=== PATIENT | male | born 1940 | race Caucasian/White ===

== ENCOUNTER 2016-09-22 12:46 | Emergency (ER) | payer OTHER ==
[2016-09-22 12:52] VITALS: TEMP 98.4; BMI 29.4
--- NOTE | 2016-09-22 13:36 | PDOC ---
History of Present Illness - General Chief Complaint: Penile Drainage Stated Complaint: INFECTION Time Seen by Provider: 09/22/16 13:16 History Source: Patient Exam Limitations: No Limitations - History of Present Illness Travel History: No Initial Comments: 09/22/16 14:13 76-year-old male presents to the ED for evaluation of left testicular swelling over the past 2 days worsened with ambulation and movement. Patient also states has the urge to urinate even after urinating causing some dribbling. Patient denies history of prostate disease fever, chills, abdominal pain, and has been with the same female partner for over 40 years. Patient states does not see a urologist and has Dr. Sergo Lopez as his primary care physician. Timing/Duration: reports: getting worse Quality: reports: moderate Abdominal Pain Onset Location: reports: other Pain Radiation: reports: no radiation Aggravating Factors: improves with: Movement Alleviating Factors: improves with: Rest Past History - Past Medical History Allergies/Adverse Reactions: Allergies Allergy/AdvReac Type Severity Reaction Status Date / Time No Known Allergies Allergy Verified 09/22/16 12:47 Home Medications: Ambulatory Orders Amlodipine Besylate [Norvasc -] 5 mg PO DAILY 01/10/16 Aspirin [ASA -] 81 mg PO DAILY 01/10/16 Atorvastatin Calcium 10 mg PO HS 01/10/16 Cephalexin Monohydrate [Keflex -] 500 mg PO Q6H #40 capsule 01/10/16 Clonidine HCl [Clonidine HCl ER] 0.1 mg PO DAILY 01/10/16 Furosemide [Lasix -] 20 mg PO DAILY 01/10/16 Hydrocortisone 2.5% Topical Cr [Anusol 2.5% Hc Cream -] 1 applic RC DAILY Losartan Potassium [Cozaar -] 50 mg PO DAILY 01/10/16 Metoprolol Tartrate [Lopressor -] 50 mg PO DAILY 01/10/16 Niacin [Niacin ER] 500 mg PO DAILY 01/10/16 Omeprazole [Prilosec] 20 mg PO DAILY 01/10/16 Tamsulosin HCl [Flomax] 0.4 mg PO DAILY 01/10/16 Cancer: No Cardiac Disorders: Yes (Hx of cardiac cath, 1 stent. Open heart sx.) Diabetes: Yes HTN: Yes - Surgical History Cardiac Surgery: Yes (cabg) - Psycho/Social/Smoking Cessation Hx Anxiety: No Suicidal Ideation: No Smoking History: Never smoked Have you smoked in the past 12 months: No Information on smoking cessation initiated: No Hx Alcohol Use: No Drug/Substance Use Hx: No Substance Use Type: None Patient Lives Alone: No Lives with/in: spouse/SO Review of Systems - Review of Systems Able to Perform ROS?: Yes Is the patient limited Japanese proficient: No Constitutional: No: Symptoms Reported ABD/GI: No: Symptoms Reported : Yes: Testicular Swelling, Testicular Pain, Other (dribbling urine) Musculoskeletal: No: Symptoms Reported Integumentary: No: Symptoms Reported Neurological: No: Symptoms reported Endocrine: No: Symptoms Reported *Physical Exam - Vital Signs Last Vital Signs Temp Pulse Resp BP Pulse Ox 98.4 F 84 18 143/79 100 09/22/16 12:49 09/22/16 12:49 09/22/16 12:49 09/22/16 12:49 09/22/16 12:49 - Physical Exam General Appearance: Yes: Nourished, Appropriately Dressed. No: Apparent Distress Gastrointestinal/Abdominal: positive: Normal Bowel Sounds, Soft. negative: Tenderness Male Genitalia: positive: normal genitalia (uncircumcised, ), testicular tenderness (with edema to the left testicle. Tenderness to left epididymis). negative: discharge Musculoskeletal: negative: CVA Tenderness Extremity: positive: Normal Capillary Refill. negative: Pedal Edema Integumentary: positive: Normal Color, Warm, Moist Neurologic: positive: Motor Strength 5/5 (ambulatory) Medical Decision Making - Medical Decision Making 09/22/16 14:24 Patient with testicular edema and tenderness with urinary frequency for the past 2 days. Patient on exam had noted edema to the left testicle patient ordered for urinalysis urine culture and ultrasound.. 09/22/16 15:15 Laboratory Tests 09/22/16 13:36 Urine Glucose (UA) 3+ H Urine Blood 1+ H Ur Leukocyte Esterase 2+ H Urine WBC 112 urine cx sent Previous urine culture positive for Escherichia coli in 2016 which was sensitive to Levaquin. Patient ordered for 1 dose here while awaiting ultrasound 09/22/16 17:19 Ultrasound shows no evidence of testicular torsion. There is a left epididymal orchitis and a small to moderate left hydrocele. Patient will be given Levaquin and discharged to follow-up with urologist. 09/22/16 17:23 *DC/Admit/Observation/Transfer Diagnosis at time of Disposition: Epididymo-orchitis, Urinary tract infection - Discharge Dispostion Disposition: HOME Condition at time of disposition: Good - Referrals Referrals: Garett Awad MD [Staff Physician] - - Patient Instructions Printed Discharge Instructions: DI for Urinary Tract Infection (UTI), Epididymitis Additional Instructions: Please take antibiotics as prescribed for the next 10 days starting tomorrow since your given your first dose here in the ER. Please also elevate your scrotum when laying down and follow up with referred urologist.
[2016-09-22 14:28] LABS: URINE APPEARANCE SLCLOUDY; URINE BILIRUBIN NEGATIVE (NEGATIVE); URINE COLOR LTYELLOW; URINE GLUCOSE (UA) 3+ (NEGATIVE); URINE KETONE NEGATIVE (NEGATIVE); URINE NITRITE NEGATIVE (NEGATIVE); URINE PROTEIN NEGATIVE (NEGATIVE); URINE UROBILINOGEN NEGATIVE E.U./dl (0.2-1.0)
[2016-09-22 14:45] LABS: URINE BLOOD 1+ (NEGATIVE); URINE LEUK ESTERASE 2+ (NEGATIVE)
[2016-09-22 14:59] LABS: URINE MUCUS RARE; URINE WBC 112 /hpf (3-5)
[2016-09-22 15:10] LABS: URINE RBC 1 /hpf (0-3)
[2016-09-22] MEDS ORDERED: LEVOFLOXACIN 500 MG TABLET (FP) PO ONE (15:48)
[2016-09-22] MEDS ORDERED: LEVOFLOXACIN 500 MG TABLET (FP) ONE (16:46)
[2016-09-22 17:42] VITALS: BP 140/80; PULSE 80
== END 2016-09-22 17:43 | disposition home or self-care (01) ==
LOC: JER 12:46
DX: N45.3 Epididymo-orchitis (principal); N39.0 Urinary tract infection, site not specified; I25.10 Atherosclerotic heart disease of native coronary artery without angina pectoris; I10 Essential (primary) hypertension; Z95.1 Presence of aortocoronary bypass graft; Z95.5 Presence of coronary angioplasty implant and graft; E78.00 Pure hypercholesterolemia, unspecified; E11.9 Type 2 diabetes mellitus without complications
CPT/HCPCS: 76870-TC; 81003; 81015; 87086; 87186; 99282-25

== ENCOUNTER 2019-07-06 14:35 | Emergency (ER) | payer OTHER ==
[2019-07-06] MEDS ORDERED: KETOROLAC TROMETHAMINE 30 MG/1 ML VIAL IM ONE (14:44)
--- NOTE | 2019-07-06 14:44 | PDOC ---
Rapid Medical Evaluation Time Seen by Provider: 07/06/19 14:39 Medical Evaluation: Allergies Allergy/AdvReac Type Severity Reaction Status Date / Time No Known Allergies Allergy Verified 09/22/16 12:47 07/06/19 14:39 CC: lower back pain radiating down BLE PE: No focal findings Orders: Toradol Patient will proceed to ED for continued evaluation. Discharge Disposition - Diagnosis Lower back pain - Referrals - Patient Instructions - Post Discharge Activity
[2019-07-06 14:59] VITALS: BP 145/88; PULSE 90; TEMP 97.6; BMI 37.1
[2019-07-06] MEDS ORDERED: KETOROLAC TROMETHAMINE 30 MG/1 ML VIAL ONE (15:06)
[2019-07-06] MEDS ORDERED: ACETAMINOPHEN 325 MG TABLET (FP) PO ONE (15:17)
--- NOTE | 2019-07-06 15:17 | PDOC ---
History of Present Illness - General Chief Complaint: Back Pain Stated Complaint: BACK PAIN Time Seen by Provider: 07/06/19 14:39 History Source: Patient - History of Present Illness Initial Comments: 07/06/19 16:05 Chief complaint: Lower back pain. Patient is a 79-year-old male with a history of CAD, diabetes other comorbidities who states that he started having lower back pain this past Wednesday. He saw his doctor on Wednesday and had blood work done. Patient denies pain right now except when he gets up to stand. He has a little bit of pain down the right leg, no paresthesias, no incontinence. Patient states he has been urinating normally. His doctor did tell him that his kidney function was somewhat elevated because of the diabetes but there was no further treatment indicated. No fever, chest pain, shortness of breath. GENERAL/CONSTITUTIONAL: No fever, weakness. dizziness HEAD, EYES, EARS, NOSE AND THROAT: No change in vision. No ear pain or discharge. No sore throat. CARDIOVASCULAR: No chest pain RESPIRATORY: No shortness of breath or cough GASTROINTESTINAL: No pain, nausea, vomiting, diarrhea or constipation GENITOURINARY: No dysuria MUSCULOSKELETAL: +back pain SKIN: No rash NEUROLOGIC: No headache, vertigo, loss of consciousness, or loss of sensation. GENERAL: The patient is awake, alert, and fully oriented, in no acute distress. HEAD: Normal with no signs of trauma. EYES: Pupils equal, round and reactive to light, sclera anicteric, conjunctiva clear. ENT: pharynx: no erythema, no exudate, uvula midline NECK: supple CHEST: clear, nontender, rr ABD: soft, nontender BACK: no tenderness or signs of injury, no CVAT EXTREMITIES: Normal range of motion, no edema. No calf tenderness, swelling or redness. Neurovascular intact NEUROLOGICAL: Normal speech, normal gait. Cranial nerves II through XII grossly intact, no gross focal abnormalities SKIN: Warm, Dry Past History - Past Medical History Allergies/Adverse Reactions: Allergies Allergy/AdvReac Type Severity Reaction Status Date / Time No Known Allergies Allergy Verified 07/06/19 14:55 Home Medications: Ambulatory Orders Amlodipine Besylate [Norvasc -] 5 mg PO DAILY 01/10/16 Aspirin [ASA -] 81 mg PO DAILY 01/10/16 Atorvastatin Calcium 10 mg PO HS 01/10/16 Cephalexin Monohydrate [Keflex -] 500 mg PO Q6H #40 capsule 01/10/16 Clonidine HCl [Clonidine HCl ER] 0.1 mg PO DAILY 01/10/16 Furosemide [Lasix -] 20 mg PO DAILY 01/10/16 Hydrocortisone 2.5% Topical Cr [Anusol 2.5% Hc Cream -] 1 applic RC DAILY Losartan Potassium [Cozaar -] 50 mg PO DAILY 01/10/16 Metoprolol Tartrate [Lopressor -] 50 mg PO DAILY 01/10/16 Niacin [Niacin ER] 500 mg PO DAILY 01/10/16 Omeprazole [Prilosec] 20 mg PO DAILY 01/10/16 Tamsulosin HCl [Flomax] 0.4 mg PO DAILY 01/10/16 Levofloxacin [Levaquin] 500 mg PO DAILY #9 tablet 09/22/16 Cancer: No Cardiac Disorders: Yes (Hx of cardiac cath, 1 stent. Open heart sx.) Diabetes: Yes HTN: Yes - Surgical History Cardiac Surgery: Yes (cabg) - Psycho Social/Smoking Cessation Hx Smoking History: Never smoked Have you smoked in the past 12 months: No Hx Alcohol Use: No Drug/Substance Use Hx: No Substance Use Type: None *Physical Exam - Vital Signs Last Vital Signs Temp Pulse Resp BP Pulse Ox 97.6 F 90 18 145/88 98 07/06/19 14:56 07/06/19 14:56 07/06/19 14:56 07/06/19 14:56 07/06/19 14:56 ED Treatment Course - ADDITIONAL ORDERS Additional order review: Laboratory Results 07/06/19 15:11 POC Glucometer 226 07/06/19 15:11 POC Glucometer 226 - Medications Given in the ED: ED Medications Discontinued Medications Generic Name Dose Route Start Last Admin Trade Name Freq PRN Reason Stop Dose Admin Ketorolac Tromethamine 30 mg 07/06/19 14:44 07/06/19 15:05 Toradol Injection - IM 07/06/19 14:45 30 mg ONCE ONE Administration Medical Decision Making - Medical Decision Making 07/06/19 16:10 79-year-old male with multiple medical problems who came in with very positional lower back pain, asymptomatic except when he moves. No chest pain, shortness of breath, no swelling redness or concerning clinical findings to the legs. No tenderness or CVAT to the back. No abdominal pain. Patient will get x-ray and Tylenol, no NSAIDs will be given due to history of diabetes and questionable abnormal kidney function as per patient and son. He last saw his doctor last Wednesday. X-ray is negative, read by radiologist. Patient will be sent to follow-up with his doctor tomorrow for further evaluation. Discussed issues, findings, results, applicable medications and treatments and follow-up. All these were understood and all questions were answered Discharge - Discharge Information Problems reviewed: Yes Clinical Impression/Diagnosis: Lower back pain Qualifiers: Chronicity: acute Back pain laterality: right Sciatica presence: with sciatica Sciatica laterality: sciatica of right side Qualified Code(s): M54.41 - Lumbago with sciatica, right side Condition: Stable Disposition: HOME - Admission No - Follow up/Referral Referrals: Sergo Lopez [Primary Care Provider] - - Patient Discharge Instructions Patient Printed Discharge Instructions: DI for Low Back Pain Additional Instructions: No heavy lifting or bending Apply ice to the area 20 minutes every 2 hours for the next 2 days Continue taking Tylenol 650 mg every 4-6 hours for pain. Return to the nearest ER if numbness, weakness, severe pain, problems with urinating or having bowel movements. Follow-up with your doctor tomorrow. It is important for you to see him since he knows all your medical problems and will further guide your treatment plan and any necessary referrals No levantar objetos pesados ??ni agacharse Aplique hielo en el albino 20 minutos cada 2 horas myrtle los prximos 2 beaulieu. Contine tomando Tylenol 650 mg cada 4-6 horas para el dolor. Regrese a la steven de emergencias ms cercana si tiene entumecimiento, debilidad , dolor intenso, problemas para orinar o defecar. Annelise un seguimiento con jernigan mdico maana. Es importante que lo lupe, ya que l conoce todos eamon problemas mdicos y le guiar an ms jernigan plan de tratamiento y las derivaciones necesarias. Print Language: INDONESIAN - Post Discharge Activity
[2019-07-06] MEDS ORDERED: ACETAMINOPHEN 325 MG TABLET (FP) ONE (15:21)
== END 2019-07-06 16:22 | disposition home or self-care (01) ==
LOC: JERFT 14:35
PROC: 3E0233Z Introduction of Anti-inflammatory into Muscle, Percutaneous Approach (ICD-10-PCS; principal; 2019-07-06)
DX: M54.41 Lumbago with sciatica, right side (principal); I25.10 Atherosclerotic heart disease of native coronary artery without angina pectoris; I10 Essential (primary) hypertension; Z95.1 Presence of aortocoronary bypass graft; Z95.5 Presence of coronary angioplasty implant and graft; E11.9 Type 2 diabetes mellitus without complications
CPT/HCPCS: 72100-TC-FY; 82962; 96372; 99284-25

== ENCOUNTER 2019-07-09 03:23 | Inpatient (IN) | payer OTHER ==
--- NOTE | 2019-07-09 04:05 | PDOC ---
History of Present Illness - General Stated Complaint: AMS Time Seen by Provider: 07/09/19 03:48 - History of Present Illness Initial Comments: 07/09/19 03:59 The patient is a 79 year old male with a PMHx of IDDM, HLD here today after being found wandering in his neighborhood this morning in his [facility]. Daughters and grandaughter at bedside assist in history. Report that patient flew here from the [place] because he had been behaving erratically for the past 2-3 months (pulling knives and threatening his , wandering the streets naked) and his family wished for him to be evaluated in the [place]. Patient was in his usual state of health this summer, living independently in an [place] He went to the [facility] in January and was fine until the last few months. Daughters report that they are unable to care for patient @ home as he requires 24 hour monitoring. Past History - Past Medical History Allergies/Adverse Reactions: Allergies Allergy/AdvReac Type Severity Reaction Status Date / Time No Known Allergies Allergy Verified 07/09/19 04:06 Home Medications: Ambulatory Orders Unobtainable 07/09/19 Cancer: No Cardiac Disorders: Yes (Hx of cardiac cath, 1 stent. Open heart sx.) Diabetes: Yes HTN: Yes - Surgical History Cardiac Surgery: Yes (cabg) - Psycho Social/Smoking Cessation Hx Smoking History: Never smoked Have you smoked in the past 12 months: No Hx Alcohol Use: No Drug/Substance Use Hx: No Substance Use Type: None Review of Systems - Review of Systems Able to Perform ROS?: No (AMS) *Physical Exam - Physical Exam General Appearance: Yes: Nourished, Appropriately Dressed HEENT: positive: Normal Voice, Hearing Grossly Normal Neck: positive: Normal Thyroid, Supple Respiratory/Chest: positive: Lungs Clear, Normal Breath Sounds Cardiovascular: positive: Regular Rate, S1, S2 Gastrointestinal/Abdominal: positive: Normal Bowel Sounds, Soft Extremity: positive: Normal Capillary Refill, Normal Inspection Integumentary: positive: Normal Color, Dry, Warm Neurologic: positive: Alert, Responsive, Confused, Disoriented. negative: Fully Oriented, Facial Droop, Numbness, Depressed Affect ED Treatment Course - LABORATORY CBC & Chemistry Diagram: 07/09/19 04:27 07/09/19 04:27 - ADDITIONAL ORDERS Additional order review: Laboratory Results 07/09/19 03:28 POC Glucometer 183 07/09/19 03:28 POC Glucometer 183 Medical Decision Making - Medical Decision Making 07/09/19 04:03 79 y/o male with 2-3 month h/o AMS. At presentation patient alert and oriented to self. Identifies he is in a hospital but states he is in the [place]. Mildly tachycardic (HR 104) and hypertensive (171/98) @ presentation Will evaluate for organic (thyroid dysfunction, electrolyte derangement, dementia including Alzheimer's and Lewy Body, more likely the latter given acute onset) and non-organic (toxic ingestion, polypharmacy) as well as Head CT to evaluate for AMS 2/2 to CVA. Reassess. 07/09/19 05:37 Elevated Troponin - EKG with Q waves in inferior leads Cr elevated @ 1.8 (1.4 in 2016) Case d/w Dr. Weber will admit intpatient telemetry. Clinical Impression: GODWIN, ? NSTEMI, AMS - most likely organic Discharge - Discharge Information Problems reviewed: Yes Clinical Impression/Diagnosis: Altered mental status Condition: Fair - Admission Yes - Follow up/Referral Referrals: Sergo Lopez [Primary Care Provider] - - Patient Discharge Instructions - Post Discharge Activity
[2019-07-09 04:07] VITALS: BMI 33.9
[2019-07-09] MEDS ORDERED: SODIUM CHLORIDE 1,000 ML IV SCH (04:15)
[2019-07-09 04:46] LABS: BASO % 1.3 % (0-2.0); EOS % 4.1 % (0-4.5); HEMATOCRIT 44.6 % (35.4-49); HEMOGLOBIN 15.1 GM/dL (11.7-16.9); LYMPH % 21.5 % (8-40); MCHC 33.8 g/dl (32.0-35.9); MEAN CELL VOLUME 88.9 fl (80-96); MONO % 5.6 % (3.8-10.2); NEUT % 67.5 % (42.8-82.8); PLATELET COUNT 217 K/MM3 (134-434); RBC 5.02 M/mm3 (4.00-5.60); RDW 13.6 % (11.9-15.9); WHITE BLOOD COUNT 6.1 K/mm3 (4.0-10.0)
[2019-07-09 05:13] LABS: ALBUMIN 3.6 g/dl (3.4-5.0); BILIRUBIN,TOTAL 0.4 mg/dL (0.2-1); BLOOD UREA NITROGEN 24.1 mg/dL (7-18); CALCIUM 9.2 mg/dL (8.5-10.1); CREATININE 1.8 mg/dL (0.55-1.3); POTASSIUM 4.2 mmol/L (3.5-5.1); TOT PROT 7.4 g/dl (6.4-8.2)
[2019-07-09 05:30] LABS: INR 1.11 (0.83-1.09); PROTHROMBIN TIME (PATIENT) 13.1 SEC (9.7-13.0)
[2019-07-09 05:33] LABS: ACTIVATED PTT 32.8 SECONDS (25.2-36.5)
[2019-07-09 05:38] LABS: URINE APPEARANCE CLEAR; URINE BILIRUBIN NEGATIVE (NEGATIVE); URINE COLOR YELLOW; URINE GLUCOSE (UA) TRACE (NEGATIVE); URINE KETONE NEGATIVE (NEGATIVE); URINE LEUK ESTERASE NEGATIVE (NEGATIVE); URINE NITRITE NEGATIVE (NEGATIVE); URINE PROTEIN TRACE (NEGATIVE); URINE UROBILINOGEN 0.2 mg/dL (0.2-1.0)
[2019-07-09 05:57] LABS: COCAINE, UR NEGATIVE ng/ml (CUTOFF=300); METHADONE, UR NEGATIVE ng/ml (CUTOFF=300); OPIATES, URI NEGATIVE ng/ml (CUTOFF=300); PHENCYCLIDINE,URINE NEGATIVE ng/ml (CUTOFF=25); URINE AMPHETAMINES NEGATIVE ng/ml (CUTOFF=500); URINE BARBITURATES NEGATIVE ng/ml (CUTOFF=200); URINE BENZODIAZEPINES NEGATIVE ng/ml (CUTOFF=200)
[2019-07-09] MEDS ORDERED: amLODIPine BESYLATE 5 MG TABLET (FP) PO ONE (06:09)
[2019-07-09] MEDS ORDERED: amLODIPine BESYLATE 5 MG TABLET (FP) ONE (06:17)
[2019-07-09] MEDS ORDERED: HEPARIN NA (PORCINE) 5,000 UNITS/ML 1ML VIAL ONE ×3 (06:17→21:08)
[2019-07-09] MEDS ORDERED: LOSARTAN POTASSIUM 50 MG TABLET (FP) PO ONE (06:20)
[2019-07-09] MEDS: HEPARIN NA (PORCINE) 5,000 UNITS/ML 1ML VIAL SQ SCH ×3 (06:22→21:27)
--- NOTE | 2019-07-09 06:22 | HP ---
CHIEF COMPLAINT: ams PCP: HISTORY OF PRESENT ILLNESS: Pt is a79 y/o M with PMH IDDM, HLD, HTN, cath s/p stent who presented to the ED brought by family after being found wandering around his neighborhood in his [facility]. Reportedly, pt has been behaving erratically for the last 2-3 months, so his family flew him [place] the [place] to be evaluated. Prior to this, his behavior was normal. On my interview, pt is able to orient with some difficulty to place. He does not know the year reliably. He has no complaints and is not able to clearly express why he is in the hospital. ER course was notable for: (1) (2) (3) Recent Travel: PAST MEDICAL HISTORY: IDDM, HLD, HTN, cath s/p sten PAST SURGICAL HISTORY: Social History: Smoking: Alcohol: Drugs: Allergies No Known Allergies Allergy (Verified 07/09/19 04:06) HOME MEDICATIONS: Home Medications Medication Instructions Recorded Unobtainable 07/09/19 REVIEW OF SYSTEMS CONSTITUTIONAL: Absent: fever, chills, diaphoresis, generalized weakness, malaise, loss of appetite, weight change HEENT: Absent: rhinorrhea, nasal congestion, throat pain, throat swelling, difficulty swallowing, mouth swelling, ear pain, eye pain, visual changes CARDIOVASCULAR: Absent: chest pain, syncope, palpitations, irregular heart rate, lightheadedness , peripheral edema RESPIRATORY: Absent: cough, shortness of breath, dyspnea with exertion, orthopnea, wheezing, stridor, hemoptysis GASTROINTESTINAL: Absent: abdominal pain, abdominal distension, nausea, vomiting, diarrhea, constipation, melena, hematochezia GENITOURINARY: Absent: dysuria, frequency, urgency, hesitancy, hematuria, flank pain, genital pain MUSCULOSKELETAL: Absent: myalgia, arthralgia, joint swelling, back pain, neck pain SKIN: Absent: rash, itching, pallor HEMATOLOGIC/IMMUNOLOGIC: Absent: easy bleeding, easy bruising, lymphadenopathy, frequent infections ENDOCRINE: Absent: unexplained weight gain, unexplained weight loss, heat intolerance, cold intolerance NEUROLOGIC: Absent: headache, focal weakness or paresthesias, dizziness, unsteady gait, seizure, mental status changes, bladder or bowel incontinence PSYCHIATRIC: Absent: anxiety, depression, suicidal or homicidal ideation, hallucinations. PHYSICAL EXAMINATION Vital Signs - 24 hr 07/09/19 07/09/19 04:06 05:48 Temperature 97.9 F Pulse Rate 104 H Pulse Rate [ 90 Apical] Respiratory 18 20 Rate Blood Pressure 171/98 H Blood Pressure 140/86 [Right Arm] O2 Sat by Pulse 96 94 L Oximetry (%) Gen: NAD, Awake, alert HEENT: NCAT, EOMI Neck: supple, no jvd Cardio: rrr, normal s1s2, systolic murmur Pulm: cta b/l Abd: soft, nontender, nondistended Ext: no edema Laboratory Results - last 24 hr 07/09/19 07/09/19 07/09/19 03:28 04:27 04:27 WBC RBC Hgb Hct MCV MCH MCHC RDW Plt Count MPV Absolute Neuts (auto) Neutrophils % Lymphocytes % Monocytes % Eosinophils % Basophils % Nucleated RBC % PT with INR 13.10 H INR 1.11 H PTT (Actin FS) 32.8 Sodium Potassium Chloride Carbon Dioxide Anion Gap BUN Creatinine Est GFR (CKD-EPI)AfAm Est GFR (CKD-EPI)NonAf POC Glucometer 183 Random Glucose Calcium Total Bilirubin AST ALT Alkaline Phosphatase Ammonia Creatine Kinase Troponin I Total Protein Albumin Urine Color Urine Appearance Urine pH Ur Specific [place] Urine Protein Urine Glucose (UA) Urine Ketones Urine Blood Urine Nitrite Urine Bilirubin Urine Urobilinogen Ur Leukocyte Esterase Salicylates < 1.7 L Opiates Screen Methadone Screen Acetaminophen Barbiturate Screen Phencyclidine Screen Ur Amphetamines Screen MDMA (Ecstasy) Screen Benzodiazepines Screen Cocaine Screen U Marijuana (THC) Screen 07/09/19 07/09/19 07/09/19 04:27 04:27 04:27 WBC 6.1 RBC 5.02 Hgb 15.1 Hct 44.6 MCV 88.9 MCH 30.0 D MCHC 33.8 RDW 13.6 Plt Count 217 D MPV 8.0 D Absolute Neuts (auto) 4.1 Neutrophils % 67.5 D Lymphocytes % 21.5 D Monocytes % 5.6 D Eosinophils % 4.1 D Basophils % 1.3 Nucleated RBC % 0 PT with INR INR PTT (Actin FS) Sodium 138 Potassium 4.2 Chloride 106 Carbon Dioxide 27 Anion Gap 5 L BUN 24.1 H Creatinine 1.8 H Est GFR (CKD-EPI)AfAm 40.87 Est GFR (CKD-EPI)NonAf 35.26 POC Glucometer Random Glucose 160 H Calcium 9.2 Total Bilirubin 0.4 AST 19 ALT 29 Alkaline Phosphatase 99 Ammonia Creatine Kinase 98 Troponin I 0.26 H Total Protein 7.4 Albumin 3.6 Urine Color Urine Appearance Urine pH Ur Specific [place] Urine Protein Urine Glucose (UA) Urine Ketones Urine Blood Urine Nitrite Urine Bilirubin Urine Urobilinogen Ur Leukocyte Esterase Salicylates Opiates Screen Methadone Screen Acetaminophen Barbiturate Screen Phencyclidine Screen Ur Amphetamines Screen MDMA (Ecstasy) Screen Benzodiazepines Screen Cocaine Screen U Marijuana (THC) Screen 07/09/19 07/09/19 07/09/19 04:27 04:27 05:20 WBC RBC Hgb Hct MCV MCH MCHC RDW Plt Count MPV Absolute Neuts (auto) Neutrophils % Lymphocytes % Monocytes % Eosinophils % Basophils % Nucleated RBC % PT with INR INR PTT (Actin FS) Sodium Potassium Chloride Carbon Dioxide Anion Gap BUN Creatinine Est GFR (CKD-EPI)AfAm Est GFR (CKD-EPI)NonAf POC Glucometer Random Glucose Calcium Total Bilirubin AST ALT Alkaline Phosphatase Ammonia 27.10 Creatine Kinase Troponin I Total Protein Albumin Urine Color Urine Appearance Urine pH Ur Specific [place] Urine Protein Urine Glucose (UA) Urine Ketones Urine Blood Urine Nitrite Urine Bilirubin Urine Urobilinogen Ur Leukocyte Esterase Salicylates Opiates Screen Negative Methadone Screen Negative Acetaminophen <2.0 Barbiturate Screen Negative Phencyclidine Screen Negative Ur Amphetamines Screen Negative MDMA (Ecstasy) Screen Negative Benzodiazepines Screen Negative Cocaine Screen Negative U Marijuana (THC) Screen Negative 07/09/19 05:20 WBC RBC Hgb Hct MCV MCH MCHC RDW Plt Count MPV Absolute Neuts (auto) Neutrophils % Lymphocytes % Monocytes % Eosinophils % Basophils % Nucleated RBC % PT with INR INR PTT (Actin FS) Sodium Potassium Chloride Carbon Dioxide Anion Gap BUN Creatinine Est GFR (CKD-EPI)AfAm Est GFR (CKD-EPI)NonAf POC Glucometer Random Glucose Calcium Total Bilirubin AST ALT Alkaline Phosphatase Ammonia Creatine Kinase Troponin I Total Protein Albumin Urine Color Yellow Urine Appearance Clear Urine pH 6.0 Ur Specific [place] 1.017 Urine Protein Trace Urine Glucose (UA) Trace Urine Ketones Negative Urine Blood Negative Urine Nitrite Negative Urine Bilirubin Negative Urine Urobilinogen 0.2 Ur Leukocyte Esterase Negative Salicylates Opiates Screen Methadone Screen Acetaminophen Barbiturate Screen Phencyclidine Screen Ur Amphetamines Screen MDMA (Ecstasy) Screen Benzodiazepines Screen Cocaine Screen U Marijuana (THC) Screen ASSESSMENT/PLAN: Pt is a79 y/o M with PMH IDDM, HLD, HTN, cath s/p stent who presented to the ED brought by family after being found wandering around his neighborhood in his [facility]. He is being admitted for AMS, GODWIN, & elevated troponin. 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 - New Patient This patient is new to me today: Yes Date on this admission: 07/09/19 - Critical Care Critical Care patient: No ATTENDING PHYSICIAN STATEMENT I saw and evaluated the patient. I reviewed the resident's note and discussed the case with the resident. I agree with the resident's findings and plan as documented. SUBJECTIVE: OBJECTIVE: ASSESSMENT AND PLAN:
--- NOTE | 2019-07-09 06:33 | PDOC ---
Attending Attestation - Resident Resident Name: MalenaKelly - ED Attending Attestation I have performed the following: I have examined & evaluated the patient, The case was reviewed & discussed with the resident, I agree w/resident's findings & plan - HPI HPI: 07/09/19 06:33 he patient is a 79 year old male with a PMHx of IDDM, HLD here today after being found wandering in his neighborhood this morning in his [facility]. Daughters and grandaughter at bedside assist in history. Report that patient flew here from the [place] because he had been behaving erratically for the past 2-3 months - Physicial Exam PE: 07/09/19 06:33 Agree with resident exam - Medical Decision Making 07/09/19 06:35 Patient Name: RUBEN WOODRUFF THIS IS A PRELIMINARY REPORT FROM [facility] DATE OF SERVICE: 2019-07-09 04:49:22 IMAGES: [id number] EXAM: CT BRAIN WITHOUT INTRAVENOUS CONTRAST. HISTORY: AMS COMPARISON: None. FINDINGS: 1. There is mild to moderate periventricular white matter small vessel ischemic disease, presumed chronic. 2. Otherwise, there is no intracranial bleed, extra-axial fluid collection, mass effect, midline shift, hydrocephalus, acute territorial infarct or depressed skull fracture evident. 3.. Partial opacification of the ethmoid sinus. 07/09/19 20:11 Elevated Troponin - EKG with Q waves in inferior leads Cr elevated @ 1.8 (1.4 in 2016) Case d/w Dr. Weber will admit intpatient telemetry.
[2019-07-09] MEDS ORDERED: LOSARTAN POTASSIUM 50 MG TABLET (FP) ONE (06:38)
--- NOTE | 2019-07-09 06:40 | PN ---
Teaching Attending Note Name of Resident: Dami Weber ATTENDING PHYSICIAN STATEMENT I saw and evaluated the patient. I reviewed the resident's note and discussed the case with the resident. I agree with the resident's findings and plan as documented. SUBJECTIVE: History was obtained from EMR as patient is a very poor historian. 79-year-old male with a history of insulin-dependent diabetes, hypertension, dyslipidemia, CAD status post stent brought by his family to the emergency department after he was wandering around the neighborhood in his [facility]. He was behaving erratically for the last 3 months. Patient reports that he is from [facility] [place]. He is oriented to person, place but not to time. Patient does not know why he is in the hospital. OBJECTIVE: Last Vital Signs Temp Pulse Resp BP Pulse Ox 97.9 F 90 20 140/86 94 L 07/09/19 04:06 07/09/19 05:48 07/09/19 05:48 07/09/19 05:48 07/09/19 05:48 On physical exam patient is an elderly male in no apparent distress. Head is atraumatic, sclera nonicteric. Moist oral mucosa. Neck is supple, no JVD appreciated. Heart sounds are normal S1, S2 with no murmurs appreciated. Lungs are clear to auscultation bilaterally. Abdomen is soft, nontender. Lower extremities with no pedal edema. Abnormal Lab Results 07/09/19 07/09/19 07/09/19 04:27 04:27 04:27 PT with INR 13.10 H INR 1.11 H Anion Gap BUN Creatinine Random Glucose Troponin I 0.26 H Salicylates < 1.7 L 07/09/19 04:27 PT with INR INR Anion Gap 5 L BUN 24.1 H Creatinine 1.8 H Random Glucose 160 H Troponin I Salicylates Imaging studies reviewed ASSESSMENT AND PLAN: Altered mental statusunknown baseline GODWIN versus CKD Elevated troponin with absence of chest pain or shortness of breath unlikely ACS. 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
[2019-07-09] MEDS: SODIUM CHLORIDE 1,000 ML IV SCH (06:57)
[2019-07-09 07:08] LABS: ARTERIAL BLD GAS O2 SATURATION 90.6 % (95-98); ARTERIAL BLOOD GAS BASE EXCESS 1.8 meq/l (-2-2); ARTERIAL BLOOD GAS PCO2 39.9 mmHg (35-45); ARTERIAL BLOOD GAS PO2 59.9 mmHg (80-100); ARTERIAL BLOOD GAS pH 7.43 (7.35-7.45); CARBOXYHEMOGLOBIN 1.1 % (0-2)
[2019-07-09] MEDS: INSULIN SLIDING SCALE (NOVOLOG) 1 VIAL SQ SCH ×4 (08:34→21:27)
[2019-07-09] MEDS ORDERED: LOSARTAN POTASSIUM 50 MG TABLET (FP) PO SCH (10:00)
--- NOTE | 2019-07-09 11:26 | CON.CARD ---
Consult Consult Specialty:: Cardiology - History of Present Illness History of Present Illness: 79 M with DM and previous cabg was found wandering in the street and brought to ER. He is confused and had incidental troponin elevation. Cr 1.8 CXR is clear Stress 2016 showed EF 26% with partially reversible posterior defect. He is comfortable. - History Source History Provided By: Medical Record - Alcohol/Substance Use Hx Alcohol Use: No - Smoking History Smoking history: Never smoked Have you smoked in the past 12 months: No Home Medications - Allergies Allergies/Adverse Reactions: Allergies Allergy/AdvReac Type Severity Reaction Status Date / Time No Known Allergies Allergy Verified 07/09/19 04:06 - Home Medications Home Medications: Ambulatory Orders Unobtainable 07/09/19 Review of Systems Unable to obtain ROS, reason: delerium Vital Signs: Vital Signs Temperature 97.9 F 07/09/19 10:50 Pulse Rate 91 H 07/09/19 10:50 Respiratory Rate 18 07/09/19 10:50 Blood Pressure 120/82 07/09/19 10:50 O2 Sat by Pulse Oximetry (%) 92 L 07/09/19 10:50 Constitutional: Yes: Well Nourished, No Distress Eyes: Yes: WNL, Conjunctiva Clear HENT: Yes: Atraumatic, Normocephalic Neck: Yes: Supple, Trachea Midline Respiratory: Yes: Regular, CTA Bilaterally Gastrointestinal: Yes: Normal Bowel Sounds, Soft Cardiovascular: Yes: Regular Rate and Rhythm JVD: No Carotid Bruit: No PMI: Non-Displaced Heart Sounds: Yes: S1, S2 Murmur: No: Systolic Murmur, Diastolic Murmur Edema: No - Other Data Labs, Other Data: CBC, BMP 07/09/19 04:27 07/09/19 04:27 INR, PTT INR 1.11 (0.83-1.09) H 07/09/19 04:27 Troponin, BNP 07/09/19 07/09/19 04:27 10:00 Troponin I 0.26 H 0.25 H Troponin, BNP 07/09/19 07/09/19 04:27 10:00 Troponin I 0.26 H 0.25 H NSR old IWMI Problem List - Problems (1) CAD (coronary artery disease) Code(s): I25.10 - ATHSCL HEART DISEASE OF [place] CORONARY ARTERY W/O ANG PCTRS Assessment/Plan 79 M with CAD post CABG, ischemic cardiomyopathy Stress 2016 showed EF 26%. Admitted [facility]. No chest pain or heart failure symptoms. ECG without ischemic findings. Mildly positive TP in this setting is difficult to interpret but medical therapy for CAD is needed. * Echo * ASA * Statin * beta victorino
--- NOTE | 2019-07-09 13:25 | PN ---
Progress Note, Physician Chief Complaint: AMS GODWIN on CKD History of Present Illness: PRevious notes and events reviewed awake and alert NAD denies chest pain or SOB noted with elevated troponin - Current Medication List Current Medications: Active Medications Heparin Sodium (Porcine) (Heparin -) 5,000 unit SQ TID [facility] Last Admin: 07/09/19 06:22 Dose: 5,000 unit Sodium Chloride (Normal Saline -) 1,000 mls @ 75 mls/hr IV ASDIR [facility] Last Admin: 07/09/19 06:57 Dose: 75 mls/hr Insulin Aspart (Novolog Vial Sliding Scale -) 1 vial SQ ACHS [facility]; Protocol Last Admin: 07/09/19 12:48 Dose: Not Given Losartan Potassium (Cozaar -) 50 mg PO DAILY [facility] - Objective Vital Signs: Vital Signs Temperature 97.9 F 07/09/19 10:50 Pulse Rate 91 H 07/09/19 10:50 Respiratory Rate 18 07/09/19 10:50 Blood Pressure 120/82 07/09/19 10:50 O2 Sat by Pulse Oximetry (%) 92 L 07/09/19 10:50 Constitutional: Yes: No Distress, Calm Eyes: Yes: Conjunctiva Clear HENT: Yes: Atraumatic Cardiovascular: Yes: Regular Rate and Rhythm Respiratory: Yes: Regular, CTA Bilaterally Gastrointestinal: Yes: Normal Bowel Sounds, Soft Musculoskeletal: Yes: WNL Extremities: Yes: WNL Edema: No Neurological: Yes: Alert Psychiatric: Yes: Alert Labs: CBC, BMP 07/09/19 04:27 07/09/19 04:27 INR, PTT INR 1.11 (0.83-1.09) H 07/09/19 04:27 Problem List - Problems (1) Altered mental status Assessment/Plan: Neurology and Cardiology consult Head CT scan shows mild to moderate volume loss and and moderate to marked periventricular chronic microvascular ischemic disease changes, no CT evidence of acute intracranial pathology, mild ehtmoid chronic sinusitis neuro check tele monitoring Code(s): R41.82 - ALTERED MENTAL STATUS, UNSPECIFIED (2) Diabetes Assessment/Plan: B[facility] ISS HgA1c Code(s): E11.9 - TYPE 2 DIABETES MELLITUS WITHOUT COMPLICATIONS Qualifiers: Diabetes mellitus type: type 2 Diabetes mellitus complication status: with hyperglycemia Qualified Code(s): E11.65 - Type 2 diabetes mellitus with hyperglycemia (3) HTN (hypertension) Assessment/Plan: Losartan low Na diet Code(s): I10 - ESSENTIAL (PRIMARY) HYPERTENSION (4) Elevated troponin Assessment/Plan: Cardiology consult tele monitoring trop 0.26~0.25 Echo monitor trop for downtrend Code(s): R79.89 - OTHER SPECIFIED ABNORMAL FINDINGS OF BLOOD CHEMISTRY Assessment/Plan see problem list dvt ppx
[2019-07-09] MEDS ORDERED: LORazepam 0.5 MG TABLET PO ONE (18:21)
[2019-07-09] MEDS ORDERED: LORazepam 0.5 MG TABLET ONE (18:23)
[2019-07-09] MEDS ORDERED: HALOPERIDOL LACTATE 5 MG/ML ONE (21:08)
[2019-07-09] MEDS ORDERED: INSULIN (NOVOLOG MIX 70/30) 100 UNITS/ML MDV SQ ONE (21:09)
[2019-07-09] MEDS: HALOPERIDOL LACTATE 5 MG/ML IM ONE (21:27)
[2019-07-10] MEDS: SODIUM CHLORIDE 1,000 ML IV SCH (06:46)
[2019-07-10] MEDS: HEPARIN NA (PORCINE) 5,000 UNITS/ML 1ML VIAL SQ SCH ×3 (06:47→23:30)
[2019-07-10 07:07] LABS: EOS % 2.9 % (0-4.5); HEMATOCRIT 42.3 % (35.4-49); HEMOGLOBIN 14.5 GM/dL (11.7-16.9); LYMPH % 24.1 % (8-40); MCH 30.3 pg (25.7-33.7); MCHC 34.2 g/dl (32.0-35.9); MEAN CELL VOLUME 88.6 fl (80-96); MONO % 7.2 % (3.8-10.2); NEUT % 64.8 % (42.8-82.8); PLATELET COUNT 214 K/MM3 (134-434); RBC 4.77 M/mm3 (4.00-5.60); RDW 13.6 % (11.9-15.9); WHITE BLOOD COUNT 5.9 K/mm3 (4.0-10.0)
[2019-07-10 07:26] LABS: ALBUMIN 3.8 g/dl (3.4-5.0); BILIRUBIN,TOTAL 0.5 mg/dL (0.2-1); CREATININE 1.8 mg/dL (0.55-1.3); TOT PROT 7.5 g/dl (6.4-8.2)
--- NOTE | 2019-07-10 08:08 | CON.NEURO ---
Consult - History of Present Illness History of Present Illness: 79 y/o M with PMH IDDM, HLD, HTN, cath s/p stent who presented to the ED brought by family after being found wandering around his neighborhood in his [facility]. Reportedly, pt has been behaving erratically for the last 2-3 months, so his family [place] be [place]. Prior to this, his behavior was reportedly normal. son in law present, pt still confused , thinks he is here for his heart; denies REINA , focal weakness, numbness. denies toxic habits. UA (-), tox (-), WBC (-), CT HD as below CT HD : Impression: Hxla-db-kdxstess volume loss and moderate to marked periventricular chronic microvascular ischemic disease changes. No CT evidence of acute intracranial pathology is identified. Correlate clinically to determine further evaluation and follow-up. Mild ethmoid chronic sinusitis - Alcohol/Substance Use Hx Alcohol Use: No - Smoking History Smoking history: Never smoked Have you smoked in the past 12 months: No Home Medications - Allergies Allergies/Adverse Reactions: Allergies Allergy/AdvReac Type Severity Reaction Status Date / Time No Known Allergies Allergy Verified 07/09/19 04:06 - Home Medications Home Medications: Ambulatory Orders Unobtainable 07/09/19 Physical Exam-Neuro Vital Signs: Vital Signs Temperature 97 F L 07/10/19 07:18 Pulse Rate 88 07/10/19 07:18 Respiratory Rate 18 07/10/19 07:18 Blood Pressure 135/85 07/10/19 07:18 O2 Sat by Pulse Oximetry (%) 96 07/10/19 07:18 Constitutional: Yes: Well Nourished, No Distress (awake , limited orientation - - think it is 2006, in a clinic;EOMI, no facial, no asterixis, no focal weakness , no nuchal rigidity , giat not tested; ) Labs: CBC, BMP 07/10/19 06:42 07/10/19 06:42 INR, PTT INR 1.11 (0.83-1.09) H 07/09/19 04:27 Imaging - Results Cat Scan: Report Reviewed, Image Reviewed Problem List - Problems (1) Altered mental status Code(s): R41.82 - ALTERED MENTAL STATUS, UNSPECIFIED (2) CAD (coronary artery disease) Code(s): I25.10 - ATHSCL HEART DISEASE OF [place] CORONARY ARTERY W/O ANG PCTRS Assessment/Plan 79 y/o M with PMH IDDM, HLD, HTN, cath s/p stent who presented to the ED brought by family after being found wandering around his neighborhood in his [facility]. Reportedly, pt has been behaving erratically for the last 2-3 months, so his family [place] be [place]. Prior to this, his behavior was reportedly normal. UA (-), tox (-), WBC (-), CT HD as below CT HD : Impression: Xnks-ej-bavknilw volume loss and moderate to marked periventricular chronic microvascular ischemic disease changes. No CT evidence of acute intracranial pathology is identified. Correlate clinically to determine further evaluation and follow-up. Mild ethmoid chronic sinusitis AP : subacute encephalopathy-- no clear evidence of toxic habits , metabolic vs structural, less likely encephalitis /meningitis given time course MRI BRAIN to start, check ESR, PRACHI, CRP, A1c, TPO AB , RPR, HIV will follow and speak to family DR DASH
[2019-07-10] MEDS: INSULIN SLIDING SCALE (NOVOLOG) 1 VIAL SQ SCH ×4 (09:10→23:30)
--- NOTE | 2019-07-10 09:37 | EKG ---
Test Reason : Blood Pressure : / mmHG Vent. Rate : 100 BPM Atrial Rate : 100 BPM P-R Int : 180 ms QRS Dur : 122 ms QT Int : 360 ms P-R-T Axes : 061 005 116 degrees QTc Int : 464 ms POOR DATA QUALITY, INTERPRETATION MAY BE ADVERSELY AFFECTED NORMAL SINUS RHYTHM IVCD INFERIOR INFARCT (CITED ON OR BEFORE 09-APR-2015) ABNORMAL ECG WHEN COMPARED WITH ECG OF 10-JAN-2016 08:39, PREMATURE ATRIAL COMPLEXES ARE NO LONGER PRESENT Confirmed by Derick Moser ([id number]) on 07/10/2019 9:37:12 AM Referred By: Confirmed By:Derick Moser
--- NOTE | 2019-07-10 09:41 | PN ---
Progress Note, Physician - Current Medication List Current Medications: Active Medications Heparin Sodium (Porcine) (Heparin -) 5,000 unit SQ TID [facility] Last Admin: 07/10/19 06:47 Dose: Not Given Sodium Chloride (Normal Saline -) 1,000 mls @ 75 mls/hr IV ASDIR [facility] Last Admin: 07/10/19 06:46 Dose: 75 mls/hr Insulin Aspart (Novolog Vial Sliding Scale -) 1 vial SQ ACHS [facility]; Protocol Last Admin: 07/10/19 09:10 Dose: Not Given Losartan Potassium (Cozaar -) 50 mg PO DAILY [facility] - Objective Vital Signs: Vital Signs Temperature 97 F L 07/10/19 07:18 Pulse Rate 88 07/10/19 07:18 Respiratory Rate 18 07/10/19 07:18 Blood Pressure 135/85 07/10/19 07:18 O2 Sat by Pulse Oximetry (%) 96 07/10/19 07:18 Cardiovascular: Yes: Regular Rate and Rhythm Respiratory: Yes: Regular, CTA Bilaterally Gastrointestinal: Yes: Normal Bowel Sounds, Soft Labs: CBC, BMP 07/10/19 06:42 07/10/19 06:42 INR, PTT INR 1.11 (0.83-1.09) H 07/09/19 04:27 Assessment/Plan - Problems (1) Altered mental status Assessment/Plan: Neurology and Cardiology consult Head CT scan shows mild to moderate volume loss and and moderate to marked periventricular chronic microvascular ischemic disease changes, no CT evidence of acute intracranial pathology, mild ehtmoid chronic sinusitis neuro check tele monitoring Code(s): R41.82 - ALTERED MENTAL STATUS, UNSPECIFIED (2) [facility] HgA1c Code(s): E11.9 - TYPE 2 DIABETES MELLITUS WITHOUT COMPLICATIONS Qualifiers: Diabetes mellitus type: type 2 Diabetes mellitus complication status: with hyperglycemia Qualified Code(s): E11.65 - Type 2 diabetes mellitus with hyperglycemia (3) HTN (hypertension) Assessment/Plan: Losartan low Na diet Code(s): I10 - ESSENTIAL (PRIMARY) HYPERTENSION (4) Elevated troponin Assessment/Plan: Cardiology consult tele monitoring trop 0.26~0.25 Echo monitor trop for downtrend Code(s): R79.89 - OTHER SPECIFIED ABNORMAL FINDINGS OF BLOOD CHEMISTRY
--- NOTE | 2019-07-10 11:20 | ECHO ---
Name: TESSY MCLAUGHLIN Exam:Adult Echocardiogram Study Date: 07/10/2019 10:29 AM Age: 79 yrs Reason For Study: ams Height: 72 in Weight: 250 lb BSA: 2.3 m2 MMode/2D Measurements & Calculations IVSd: 1.4 cm Ao root diam: 3.0 cm LVIDd: 4.5 cm LA dimension: 3.8 cm LVIDs: 3.3 cm LVPWd: 1.2 cm LVPWs: 1.3 cm EDV(Teich): 90.8 ml ESV(Teich): 42.9 ml LVOT diam: 2.1 cm LAV (MOD-bp): 60.8 ml RV S Jesús: 10.7 cm/sec Doppler Measurements & Calculations MV E max jesús: 71.8 cm/sec Ao V2 max: 138.8 cm/sec MV A max jesús: 99.9 cm/sec Ao max P.7 mmHg MV E/A: 0.72 MILA(V,D): 2.1 cm2 MV dec time: 0.14 sec LV V1 max P.9 mmHg MR max jesús: 620.9 cm/sec LV V1 max: 85.9 cm/sec MR max P.3 mmHg PA V2 max: 125.6 cm/sec Med Peak E' Jesús: 6.0 cm/sec PA max P.3 mmHg Med E/e': 12.0 Lat Peak E' Jesús: 8.8 cm/sec Lat E/e': 8.1 Procedure Study Quality: Fair. Left Ventricle The left ventricle is normal in size. There is mild concentric left ventricular hypertrophy. The left ventricular ejection fraction is normal. Ejection Fraction = 55-60%. The transmitral spectral Doppler flow pattern is suggestive of impaired LV relaxation. Right Ventricle The right ventricle is grossly normal size. The right ventricular systolic function is grossly normal . Atria Normal left and right atrial size and function. Mitral Valve The mitral valve is grossly normal. There is mild mitral regurgitation. Tricuspid Valve The tricuspid valve is not well visualized, but is grossly normal. No tricuspid regurgitation. Aortic Valve The aortic valve is trileaflet. No hemodynamically significant valvular aortic stenosis. Pulmonic Valve The pulmonic valve is not well visualized. Great Vessels The aortic root is normal size. Pericardium/Pleura There is no pericardial effusion. Interpretation Summary LV: Normal size, mild to moderate LVH, normal systolic function, EF 55-60%, impaired relaxation RV; Normal Mild mitral regurgitation. Derick Moser 07/10/2019 11:20 AM
[2019-07-10] MEDS ORDERED: LOSARTAN POTASSIUM 50 MG TABLET (FP) ONE (11:32)
[2019-07-10] MEDS: LOSARTAN POTASSIUM 50 MG TABLET (FP) PO SCH (11:35)
--- NOTE | 2019-07-10 15:04 | PN ---
Progress Note (short form) - Note Progress Note: ID consult dictated imp/reccd 79 yo man with DM admitted to the hospital with worsening confusion [place] was in [place] for the last 4 months, son noticed he was becoming more confused there here he was found wandering in his pajamas in the neighborhood [place] no fevers no weight loss no etoh is in [place] history of some forgetfulness prior to trip to [place] grandfather had early dementia subacute dementia/encephalopathy hiv, rpr, b12, tfts, MRI f/u with neuro poorly controlled DM HTN with microvascular ischemic changes on head CT ckd positive troponin Problem List - Problems (1) Altered mental status Code(s): R41.82 - ALTERED MENTAL STATUS, UNSPECIFIED (2) Poorly controlled diabetes mellitus Code(s): E11.65 - TYPE 2 DIABETES MELLITUS WITH HYPERGLYCEMIA (3) HTN (hypertension) Code(s): I10 - ESSENTIAL (PRIMARY) HYPERTENSION (4) CKD (chronic kidney disease) Code(s): N18.9 - CHRONIC KIDNEY DISEASE, UNSPECIFIED (5) Elevated troponin Code(s): R79.89 - OTHER SPECIFIED ABNORMAL FINDINGS OF BLOOD CHEMISTRY
--- NOTE | 2019-07-10 16:01 | PN ---
Progress Note, Physician History of Present Illness: pt seen in er. discussed with son at bedside. no overnight events. no new complaints. - Current Medication List Current Medications: Active Medications Heparin Sodium (Porcine) (Heparin -) 5,000 unit SQ TID [facility] Last Admin: 07/10/19 14:38 Dose: 5,000 unit Sodium Chloride (Normal Saline -) 1,000 mls @ 75 mls/hr IV ASDIR [facility] Last Admin: 07/10/19 06:46 Dose: 75 mls/hr Insulin Aspart (Novolog Vial Sliding Scale -) 1 vial SQ ACHS [facility]; Protocol Last Admin: 07/10/19 11:35 Dose: Not Given Losartan Potassium (Cozaar -) 50 mg PO DAILY [facility] Last Admin: 07/10/19 11:35 Dose: 50 mg - Objective Vital Signs: Vital Signs Temperature 97.8 F 07/10/19 07:50 Pulse Rate 94 H 07/10/19 07:50 Respiratory Rate 18 07/10/19 07:50 Blood Pressure 156/89 07/10/19 07:50 O2 Sat by Pulse Oximetry (%) 96 07/10/19 07:50 Constitutional: Yes: No Distress, Calm Eyes: Yes: Conjunctiva Clear, EOM Intact HENT: Yes: Atraumatic, Normocephalic Neck: Yes: Supple, Trachea Midline Cardiovascular: Yes: Regular Rate and Rhythm, S1, S2. No: Bradycardia, Tachycardia, Pulse Irregular, Bruit, JVD, Gallop, Murmur, Rub, S3, S4, Varicosities Respiratory: Yes: Regular. No: Rales, Rhonchi, SOB on Exertion, Wheezes Gastrointestinal: Yes: Normal Bowel Sounds, Soft. No: Distention, Tenderness Extremities: Yes: WNL Edema: No Peripheral Pulses WNL: Yes Peripheral Pulses: Left Doralis Pedis: 2+, Right Dorsalis Pedis: 2+ Neurological: Yes: Alert, Oriented Psychiatric: Yes: Alert, Oriented Labs: CBC, BMP 07/10/19 06:42 07/10/19 06:42 INR, PTT INR 1.11 (0.83-1.09) H 07/09/19 04:27 - ....Imaging Chest X-ray: Report Reviewed, Image Reviewed EKG: Report Reviewed, Image Reviewed Other: Report Reviewed, Image Reviewed (tele-no sig arrhythmias recorded) Assessment/Plan 79 M with CAD post CABG, ischemic cardiomyopathy Stress 2016 showed EF 26%. Admitted [facility]. No chest pain or heart failure symptoms. ECG without ischemic findings. Mildly positive TP in this setting is difficult to interpret but medical therapy for CAD is needed. * Echo showed normal lvef, mild mr * start ASA 81mg daily * start Statin * can start metoprolol 25mg daily * can dc tele * ams work up as per neurology/medicine * no additional ischemic evaluation is needed at this time. * Will see as needed. please call with any additional questions.
--- NOTE | 2019-07-10 16:08 | CONS ---
INFECTIOUS DISEASE CONSULTATION DATE OF CONSULTATION: DATE OF DICTATION: 07/10/2019 REQUESTING PHYSICIAN: Keely Mccall MD HISTORY: This is a 79-year-old man with a history of hypertension and diabetes. He was just living in [facility] for the last several months. His son is at the bedside. He notes that dad started sounding confused during his stay there over the last several months. [place] has been back for about 2 weeks. They noted he has been having confusion. He is not sure of where he is. He was found wandering in his neighborhood in his [facility], and they brought him to the ER. There is no history of any fevers. There is no weight loss. He has a good appetite. There is no history of any alcohol use. His lives in . He did have a history of some forgetfulness prior to the trip to the ER, and there is family history of a grandfather who had early dementia. He has no known drug allergies. His PCP is . PAST MEDICAL HISTORY: Notable for diabetes, hypertension, hyperlipidemia. He has coronary artery disease and status post stent. SOCIAL HISTORY: There is no history of any alcohol or substance use. ALLERGIES: He has no known drug allergies. MEDICATIONS: Medication list is not obtainable. REVIEW OF SYSTEMS: There are no changes in vision. There is no combativeness. PHYSICAL EXAMINATION: General: He is a cooperative, elderly man in no acute distress. Vital Signs: His temperature is 97.8, pulse 94, blood pressure 156/89, respiratory rate is 18, saturating 96% on room air. HEENT: He is normocephalic. His eyes are anicteric. He has no thrush. Neck: Supple. He has no adenopathy. Lungs: Clear to auscultation. Abdomen: Soft, nontender. Extremities: Without edema. Neurologic: He is alert and cooperative, but he is not oriented to place. He knows his name, and he recognizes his son. He is not able to tell me where he is. DIAGNOSTIC DATA: His white count is 5.9, hemoglobin 14.5, platelets are 214. BUN 31, creatinine 1.8. Of note, his hemoglobin A1c is 12.3, troponin is 0.91. Urinalysis is negative. Urine toxicology is negative. Head CT is notable for [id number] volume loss and [id number]-ty-[id number] periventricular, chronic, microvascular ischemic changes. There is no other acute process noted. In summary, this is a 79-year-old man with worsening mental status, subacute dementia versus encephalopathy. I would agree with HIV testing and RPR, B12, PFTs, MRI all of which have been ordered. Follow up with Neurology. Of note, he has very poorly controlled diabetes, which could perhaps be a contributing factor. As well, head CT is notable for probably poorly controlled hypertension. He has a lot of microvascular changes. Would await further imaging. DELANEY WHITE M.D. [id number]
--- NOTE | 2019-07-10 20:07 | CONSULT ---
Consult Consult Specialty:: Nephrology Reason for Consultation:: GODWIN - History of Present Illness Chief Complaint: found wandering the streets in his [facility] History of Present Illness: Pt is a 79 year old male with pmhx of dm, hld, htn, cad, who was braught to the hospital after being found wandering the neighborhood in his [facility]. He has been acting erratically for a few months. His family are at bedside. He says that he feels well. He has no complaints. I was called to evaluate him for elevated supply assistant. He denies shortness of breath. He does get lower ext edema at times. He denies nsaid use. - History Source History Provided By: Family Member - Past Medical History Cardio/Vascular: Yes: HTN, Hyperlipdemia Renal/: Yes: Renal Inusuff Endocrine: Yes: Diabetes Mellitus - Alcohol/Substance Use Hx Alcohol Use: No - Smoking History Smoking history: Never smoked Have you smoked in the past 12 months: No Home Medications - Allergies Allergies/Adverse Reactions: Allergies Allergy/AdvReac Type Severity Reaction Status Date / Time No Known Allergies Allergy Verified 07/09/19 04:06 - Home Medications Home Medications: Ambulatory Orders Unobtainable 07/09/19 Family Medical History Family History: Denies Review of Systems - Review of Systems Constitutional: reports: No Symptoms Eyes: reports: No Symptoms HENT: reports: No Symptoms Neck: reports: No Symptoms Cardiovascular: reports: No Symptoms Respiratory: reports: No Symptoms Gastrointestinal: reports: No Symptoms Genitourinary: reports: No Symptoms Musculoskeletal: reports: No Symptoms Integumentary: reports: No Symptoms Neurological: reports: Confusion Endocrine: reports: No Symptoms Hematology/Lymphatic: reports: No Symptoms Psychiatric: reports: No Symptoms Physical Exam Vital Signs: Vital Signs Temperature 98.4 F 07/10/19 18:39 Pulse Rate 97 H 07/10/19 18:39 Respiratory Rate 20 07/10/19 18:39 Blood Pressure 142/70 07/10/19 18:39 O2 Sat by Pulse Oximetry (%) 99 07/10/19 18:39 Constitutional: Yes: Calm Eyes: Yes: Conjunctiva Clear HENT: Yes: Atraumatic Neck: Yes: Supple Cardiovascular: Yes: S1, S2 Respiratory: Yes: CTA Bilaterally Gastrointestinal: Yes: Soft Renal/: Yes: WNL Musculoskeletal: Yes: WNL Edema: LLE: Trace, RLE: Trace Neurological: Yes: Confusion Labs: CBC, BMP 07/10/19 06:42 07/10/19 06:42 Laboratory Tests 04/10/15 01/10/16 07/09/19 00:10 08:19 04:27 Creatinine 1.6 H 1.4 H 1.8 H Urine Protein Urine Blood 07/09/19 07/10/19 05:20 06:42 Creatinine 1.8 H Urine Protein Trace Urine Blood Negative Imaging - Results Cat Scan: Report Reviewed Problem List - Problems (1) CAD (coronary artery disease) Code(s): I25.10 - ATHSCL HEART DISEASE OF [place] CORONARY ARTERY W/O ANG PCTRS (2) CKD (chronic kidney disease) Code(s): N18.9 - CHRONIC KIDNEY DISEASE, UNSPECIFIED Assessment/Plan Current Medications Generic Name Dose Route Start Last Admin Trade Name Freq PRN Reason Stop Dose Admin Heparin Sodium (Porcine) 5,000 unit 07/09/19 06:15 07/10/19 14:38 Heparin - SQ 5,000 unit TID SHOBHA Administration Sodium Chloride 1,000 mls @ 75 mls/hr 07/09/19 06:52 07/10/19 06:46 Normal Saline - IV 75 mls/hr ASDIR SHOBHA Administration Insulin Aspart 1 vial 07/09/19 07:00 07/10/19 16:47 Novolog Vial Sliding Scale - SQ Not Given ACHS SHOBHA Protocol Losartan Potassium 50 mg 07/10/19 10:00 07/10/19 11:35 Cozaar - PO 50 mg DAILY SHOBHA Administration Impression 1. CKD 2. HTN 3. DM 4. confusion/altered mental status Plan - cont current meds - check renal ultrasound - pt likely with hx of CKD - neuro workup
[2019-07-11] MEDS: INSULIN SLIDING SCALE (NOVOLOG) 1 VIAL SQ SCH ×4 (06:16→21:19)
[2019-07-11] MEDS: HEPARIN NA (PORCINE) 5,000 UNITS/ML 1ML VIAL SQ SCH ×3 (07:06→21:19)
[2019-07-11] MEDS: SODIUM CHLORIDE 1,000 ML IV SCH (07:06)
--- NOTE | 2019-07-11 09:35 | PN ---
Progress Note, Physician - Current Medication List Current Medications: Active Medications Amlodipine Besylate (Norvasc -) 5 mg PO DAILY [facility] Donepezil HCl (Aricept -) 5 mg PO DAILY [facility] Heparin Sodium (Porcine) (Heparin -) 5,000 unit SQ TID [facility] Last Admin: 07/11/19 07:06 Dose: 5,000 unit Sodium Chloride (Normal Saline -) 1,000 mls @ 75 mls/hr IV ASDIR [facility] Last Admin: 07/11/19 07:06 Dose: Not Given Insulin Aspart (Novolog Vial Sliding Scale -) 1 vial SQ [facility]; Protocol Last Admin: 07/11/19 06:16 Dose: Not Given Losartan Potassium (Cozaar -) 50 mg PO DAILY [facility] Last Admin: 07/10/19 11:35 Dose: 50 mg Quetiapine Fumarate (Seroquel -) 12.5 mg PO DAILY [facility] - Objective Vital Signs: Vital Signs Temperature 97.9 F 07/10/19 22:30 Pulse Rate 122 H 07/11/19 09:00 Respiratory Rate 20 07/11/19 09:00 Blood Pressure 184/92 H 07/11/19 09:00 O2 Sat by Pulse Oximetry (%) 96 07/10/19 22:30 Cardiovascular: Yes: Regular Rate and Rhythm Respiratory: Yes: Regular, CTA Bilaterally Gastrointestinal: Yes: Normal Bowel Sounds, Soft Neurological: Yes: Alert, Confusion Labs: CBC, BMP 07/10/19 06:42 07/10/19 06:42 INR, PTT INR 1.11 (0.83-1.09) H 07/09/19 04:27 Assessment/Plan - Problems (1) Altered mental status Assessment/Plan: probably dementia start aricept and seraquel Neurology and Cardiology consult--MRI Head CT scan shows mild to moderate volume loss and and moderate to marked periventricular chronic microvascular ischemic disease changes, no CT evidence of acute intracranial pathology, mild ehtmoid chronic sinusitis neuro check Code(s): R41.82 - ALTERED MENTAL STATUS, UNSPECIFIED (2) Diabetes Assessment/Plan: [facility] ISS [id number] Code(s): E11.9 - TYPE 2 DIABETES MELLITUS WITHOUT COMPLICATIONS Qualifiers: Diabetes mellitus type: type 2 Diabetes mellitus complication status: with hyperglycemia Qualified Code(s): E11.65 - Type 2 diabetes mellitus with hyperglycemia (3) HTN (hypertension) Assessment/Plan: Losartan low Na diet Code(s): I10 - ESSENTIAL (PRIMARY) HYPERTENSION (4) Elevated troponin Assessment/Plan: Cardiology consult appreciated no further work up tele monitoring trop 0.26~0.25 Echo monitor trop for downtrend Code(s): R79.89 - OTHER SPECIFIED ABNORMAL FINDINGS OF BLOOD CHEMISTRY
--- NOTE | 2019-07-11 10:24 | EKG ---
Test Reason : Blood Pressure : / mmHG Vent. 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
[2019-07-11] MEDS: QUEtiapine FUMARATE 25 MG TABLET PO SCH (10:48)
[2019-07-11] MEDS: LOSARTAN POTASSIUM 50 MG TABLET (FP) PO SCH (10:48)
[2019-07-11] MEDS: amLODIPine BESYLATE 5 MG TABLET (FP) PO SCH (10:49)
--- NOTE | 2019-07-11 14:43 | PN ---
Progress Note, Physician History of Present Illness: Pt seen and examined at bedside. He is awake but confused. I spoke to his family and he has been having confusion and altered mentation for over a year. - Current Medication List Current Medications: Active Medications Amlodipine Besylate (Norvasc -) 5 mg PO DAILY [facility] Last Admin: 07/11/19 10:49 Dose: 5 mg Donepezil HCl (Aricept -) 5 mg PO DAILY [facility] Heparin Sodium (Porcine) (Heparin -) 5,000 unit SQ TID [facility] Last Admin: 07/11/19 07:06 Dose: 5,000 unit Sodium Chloride (Normal Saline -) 1,000 mls @ 75 mls/hr IV ASDIR [facility] Last Admin: 07/11/19 07:06 Dose: Not Given Insulin Aspart (Novolog Vial Sliding Scale -) 1 vial SQ ACHS [facility]; Protocol Last Admin: 07/11/19 06:16 Dose: Not Given Losartan Potassium (Cozaar -) 50 mg PO DAILY [facility] Last Admin: 07/11/19 10:48 Dose: 50 mg Quetiapine Fumarate (Seroquel -) 12.5 mg PO DAILY [facility] Last Admin: 07/11/19 10:48 Dose: 12.5 mg - Objective Vital Signs: Vital Signs Temperature 98.4 F 07/11/19 09:37 Pulse Rate 96 H 07/11/19 12:25 Respiratory Rate 18 07/11/19 12:25 Blood Pressure 96/64 07/11/19 12:25 O2 Sat by Pulse Oximetry (%) 96 07/10/19 22:30 Constitutional: Yes: Calm Eyes: Yes: Conjunctiva Clear HENT: Yes: Atraumatic Cardiovascular: Yes: S1, S2 Respiratory: Yes: CTA Bilaterally Gastrointestinal: Yes: Soft Musculoskeletal: Yes: WNL Edema: Yes Edema: LLE: Trace, RLE: Trace Integumentary: Yes: WNL Neurological: Yes: Confusion Labs: CBC, BMP 07/10/19 06:42 07/10/19 06:42 INR, PTT INR 1.11 (0.83-1.09) H 07/09/19 04:27 Problem List - Problems (1) CAD (coronary artery disease) Code(s): I25.10 - ATHSCL HEART DISEASE OF [place] CORONARY ARTERY W/O ANG PCTRS (2) CKD (chronic kidney disease) Code(s): N18.9 - CHRONIC KIDNEY DISEASE, UNSPECIFIED Assessment/Plan Current Medications Generic Name Dose Route Start Last Admin Trade Name Tae PRN Reason Stop Dose Admin Amlodipine Besylate 5 mg 07/11/19 10:00 07/11/19 10:49 Norvasc - PO 5 mg DAILY SHOBHA Administration Donepezil HCl 5 mg 07/11/19 10:00 Aricept - PO DAILY SHOBHA Heparin Sodium (Porcine) 5,000 unit 07/09/19 06:15 07/11/19 07:06 Heparin - SQ 5,000 unit TID SHOBHA Administration Sodium Chloride 1,000 mls @ 75 mls/hr 07/09/19 06:52 07/11/19 07:06 Normal Saline - IV Not Given ASDIR SHOBHA Insulin Aspart 1 vial 07/09/19 07:00 07/11/19 06:16 Novolog Vial Sliding Scale - SQ Not Given ACHS [facility] Protocol Losartan Potassium 50 mg 07/10/19 10:00 07/11/19 10:48 Cozaar - PO 50 mg DAILY SHOBHA Administration Quetiapine Fumarate 12.5 mg 07/11/19 10:00 07/11/19 10:48 Seroquel - PO 12.5 mg DAILY SHOBHA Administration Impression 1. CKD 2. HTN 3. DM 4. confusion/altered mental status Plan - check cmp - discussed with family - will need outpt workup - check renal ultrasound - neuro workup
[2019-07-11] MEDS ORDERED: PT OWN MED DRAWER 7, Y5N ONE (15:57)
[2019-07-11] MEDS: DONEPEZIL HCL 5 MG TABLET (FP) PO SCH (15:58)
--- NOTE | 2019-07-11 16:55 | PN ---
Progress Note (short form) - Note Progress Note: HPI : 79 y/o M with PMH IDDM, HLD, HTN, cath s/p stent who presented to the ED brought by family after being found wandering around his neighborhood in his [facility]. Reportedly, pt has been behaving erratically for the last 2-3 months, so his family flew him [place] the [place] to be [place]. Prior to this, his behavior was reportedly normal. son in law present, pt still confused , thinks he is here for his heart; denies REINA , focal weakness, numbness. denies toxic habits. UA (-), tox (-), WBC (-), CT HD as below CT HD : Impression: [place] volume loss and moderate to marked periventricular chronic microvascular ischemic disease changes. No CT evidence of acute intracranial pathology is identified. Correlate clinically to determine further evaluation and follow-up. Mild ethmoid chronic sinusitis FU : spoke to Grand daughter-- memory issues > one yr, wanderings spells etc family unable to care for him no fam HX of dementia that they are aware of A1c 12.3 , MRI BRAIn P - Alcohol/Substance Use Hx Alcohol Use: No - Smoking History Smoking history: Never smoked Have you smoked in the past 12 months: No Home Medications - Allergies Allergies/Adverse Reactions: Allergies Allergy/AdvReac Type Severity Reaction Status Date / Time No Known Allergies Allergy Verified 07/09/19 04:06 - Home Medications Home Medications: Ambulatory Orders Unobtainable 07/09/19 Physical Exam-Neuro Vital Signs: Vital Signs Temperature 98.4 F 07/11/19 14:00 Pulse Rate 82 07/11/19 16:00 Respiratory Rate 20 07/11/19 14:00 Blood Pressure 139/84 07/11/19 16:00 O2 Sat by Pulse Oximetry (%) 98 07/11/19 09:00 Constitutional: Yes: Well Nourished, No Distress (awake , limited orientation - - think it is 2006, in a clinic;EOMI, no facial, no asterixis, no focal weakness , no nuchal rigidity , giat not tested; ) Labs: CBCD WBC 5.9 K/mm3 (4.0-10.0) 07/10/19 06:42 RBC 4.77 M/mm3 (4.00-5.60) 07/10/19 06:42 Hgb 14.5 GM/dL (11.7-16.9) 07/10/19 06:42 Hct 42.3 % (35.4-49) 07/10/19 06:42 MCV 88.6 fl (80-96) 07/10/19 06:42 MCHC 34.2 g/dl (32.0-35.9) 07/10/19 06:42 RDW 13.6 % (11.9-15.9) 07/10/19 06:42 Plt Count 214 K/MM3 (134-434) 07/10/19 06:42 MPV 8.0 fl (7.5-11.1) 07/10/19 06:42 CMP Sodium 141 mmol/L (136-145) 07/10/19 06:42 Potassium 4.0 mmol/L (3.5-5.1) 07/10/19 06:42 Chloride 110 mmol/L (98-107) H 07/10/19 06:42 Carbon Dioxide 23 mmol/L (21-32) 07/10/19 06:42 Anion Gap 8 MMOL/L (8-16) 07/10/19 06:42 BUN 31.0 mg/dL (7-18) H 07/10/19 06:42 Creatinine 1.8 mg/dL (0.55-1.3) H 07/10/19 06:42 Calcium 9.0 mg/dL (8.5-10.1) 07/10/19 06:42 Total Bilirubin 0.5 mg/dL (0.2-1) 07/10/19 06:42 AST 28 U/L (15-37) 07/10/19 06:42 ALT 28 U/L (13-61) 07/10/19 06:42 Alkaline Phosphatase 89 U/L (45-117) 07/10/19 06:42 Total Protein 7.5 g/dl (6.4-8.2) 07/10/19 06:42 Albumin 3.8 g/dl (3.4-5.0) 07/10/19 06:42 Imaging - Results Cat Scan: Report Reviewed, Image Reviewed Problem List - Problems (1) Altered mental status Code(s): R41.82 - ALTERED MENTAL STATUS, UNSPECIFIED (2) CAD (coronary artery disease) Code(s): I25.10 - ATHSCL HEART DISEASE OF [place] CORONARY ARTERY W/O ANG PCTRS Assessment/Plan 79 y/o M with PMH IDDM, HLD, HTN, cath s/p stent who presented to the ED brought by family after being found wandering around his neighborhood in his [facility]. Reportedly, pt has been behaving erratically for the last 2-3 months, so his [place] be [place]. Prior to this, his behavior was reportedly normal. UA (-), tox (-), WBC (-), CT HD as below CT HD : Impression: Izqe-il-ixoisxhl volume loss and moderate to marked periventricular chronic microvascular ischemic disease changes. No CT evidence of acute intracranial pathology is identified. Correlate clinically to determine further evaluation and follow-up. Mild ethmoid chronic sinusitis AP : subacute encephalopathy-- no clear evidence of toxic habits , metabolic vs structural, less likely encephalitis /meningitis given time course given more hx may represent a frontemporal dementia vs ALZ dementia vs vascular dementia DM uncontrolled MRI BRAIN -P PRACHI, CRP, A1c, TPO AB , ESR , RPR, (-) DR DASH Problem List - Problems (1) Altered mental status Code(s): R41.82 - ALTERED MENTAL STATUS, UNSPECIFIED (2) CAD (coronary artery disease) Code(s): I25.10 - ATHSCL HEART DISEASE OF [place] CORONARY ARTERY W/O ANG PCTRS
[2019-07-11] MEDS ORDERED: LORazepam 2 MG/ML SDV VIAL IM ONE (17:10)
[2019-07-11] MEDS ORDERED: QUEtiapine FUMARATE 25 MG TABLET PO ONE (20:19)
--- NOTE | 2019-07-11 23:35 | CONSULT ---
Consult Consult Specialty:: endocrine Referred by:: dr.Iyad Mccall Reason for Consultation:: Diabetes mellitus type 2 uncontrolled - History of Present Illness Chief Complaint: high blood sugars History of Present Illness: 79-year-old male with a history of T2DM uncontrolled ,non compliant with diet, and medication. hypertension, dyslipidemia, CAD status post stent admitted after he was wandering around the neighborhood in his [facility]. He was behaving erratically for the last 3 months. Patient reports that he is from [facility]. He is oriented to person, place but not to time. family at bedside, acknowledge his poor diet and medication compliance his sugars always elevated despite taking insulin therapy daily.. - Past Medical History Cardio/Vascular: Yes: HTN, Hyperlipdemia Renal/: Yes: Renal Inusuff Endocrine: Yes: Diabetes Mellitus - Alcohol/Substance Use Hx Alcohol Use: No - Smoking History Smoking history: Never smoked Have you smoked in the past 12 months: No Home Medications - Allergies Allergies/Adverse Reactions: Allergies Allergy/AdvReac Type Severity Reaction Status Date / Time No Known Allergies Allergy Verified 07/09/19 04:06 - Home Medications Home Medications: Ambulatory Orders Unobtainable 07/09/19 Review of Systems - Review of Systems Constitutional: reports: Weakness Eyes: reports: Blurred Vision HENT: reports: No Symptoms Neck: reports: No Symptoms Cardiovascular: reports: No Symptoms Respiratory: reports: No Symptoms Gastrointestinal: reports: No Symptoms Genitourinary: reports: No Symptoms Musculoskeletal: reports: Joint Pain, Joint Swelling, Muscle Cramps Physical Exam Vital Signs: Vital Signs Temperature 98.4 F 07/11/19 14:00 Pulse Rate 82 07/11/19 16:00 Respiratory Rate 14 07/11/19 20:00 Blood Pressure 157/70 07/11/19 20:00 O2 Sat by Pulse Oximetry (%) 98 07/11/19 19:42 Constitutional: Yes: Anxious Eyes: Yes: EOM Intact HENT: Yes: Normocephalic Neck: Yes: Trachea Midline Cardiovascular: Yes: Regular Rate and Rhythm Respiratory: Yes: CTA Bilaterally Gastrointestinal: Yes: Normal Bowel Sounds ...Rectal Exam: Yes: Deferred Breast(s): Yes: WNL Musculoskeletal: Yes: WNL Extremities: Yes: WNL Integumentary: Yes: Venous Stasis Changes Neurological: Yes: Alert Labs: CBC, BMP 07/10/19 06:42 07/10/19 06:42 Problem List - Problems (1) Controlled diabetes mellitus with hyperglycemia, with long-term current use of insulin Problems reviewed: Yes Code(s): E11.65 - TYPE 2 DIABETES MELLITUS WITH HYPERGLYCEMIA; Z79.4 - NURSING HOME (CURRENT) USE OF INSULIN Qualifiers: Diabetes mellitus type: type 2 Qualified Code(s): E11.65 - Type 2 diabetes mellitus with hyperglycemia; Z79.4 - halfway (current) use of insulin (2) Altered mental status Problems reviewed: Yes Code(s): R41.82 - ALTERED MENTAL STATUS, UNSPECIFIED (3) CAD (coronary artery disease) Code(s): I25.10 - ATHSCL HEART DISEASE OF [place] CORONARY ARTERY W/O ANG PCTRS (4) CKD (chronic kidney disease) Code(s): N18.9 - CHRONIC KIDNEY DISEASE, UNSPECIFIED (5) Elevated troponin Code(s): R79.89 - OTHER SPECIFIED ABNORMAL FINDINGS OF BLOOD CHEMISTRY (6) HTN (hypertension) Code(s): I10 - ESSENTIAL (PRIMARY) HYPERTENSION (7) Diabetes Code(s): E11.9 - TYPE 2 DIABETES MELLITUS WITHOUT COMPLICATIONS Qualifiers: Diabetes mellitus type: type 2 Diabetes mellitus complication status: with hyperglycemia Qualified Code(s): E11.65 - Type 2 diabetes mellitus with hyperglycemia (8) Epididymo-orchitis Code(s): N45.3 - EPIDIDYMO-ORCHITIS (9) Lower back pain Code(s): M54.5 - LOW BACK PAIN Qualifiers: Chronicity: acute Back pain laterality: right Sciatica presence: with sciatica Sciatica laterality: sciatica of right side Qualified Code(s): M54.41 - Lumbago with sciatica, right side Assessment/Plan Current Active Problems Altered mental status (Acute) CAD (coronary artery disease) (Acute) CKD (chronic kidney disease) (Acute) Controlled diabetes mellitus with hyperglycemia, with long-term current use of insulin (Acute) Elevated troponin (Acute) HTN (hypertension) (Acute) Abnormal Lab Results 07/11/19 05:15 ESR 26 H Laboratory Results - last 24 hr 07/11/19 07/11/19 07/11/19 05:15 05:15 05:34 ESR 26 H POC Glucometer 102 RPR Titer Nonreactive 0207/11/19 07/11/19 12:18 18:08 21:02 ESR POC Glucometer 122 143 223 RPR Titer Laboratory Tests 07/09/19 07/10/19 07/10/19 04:27 06:42 06:42 Sodium 141 Potassium 4.0 Carbon Dioxide 23 Anion Gap 8 BUN 31.0 H Creatinine 1.8 H Est GFR (CKD-EPI)AfAm 40.87 Hemoglobin A1c % 12.3 H TSH 1.48 plan:\ levemir 10 units am increase as needed bgm qachs novolog scale doses\ diet and close family supervision
[2019-07-12 06:32] LABS: BLOOD UREA NITROGEN 22.9 mg/dL (7-18); CALCIUM 8.2 mg/dL (8.5-10.1); CREATININE 1.8 mg/dL (0.55-1.3); POTASSIUM 3.7 mmol/L (3.5-5.1)
[2019-07-12] MEDS: HEPARIN NA (PORCINE) 5,000 UNITS/ML 1ML VIAL SQ SCH ×3 (06:50→22:21)
[2019-07-12] MEDS: INSULIN SLIDING SCALE (NOVOLOG) 1 VIAL SQ SCH ×4 (06:51→22:22)
[2019-07-12] MEDS: SODIUM CHLORIDE 1,000 ML IV SCH (06:51)
[2019-07-12] MEDS ORDERED: INSULIN (LEVEMIR) 100 UNITS/ML UNITS SQ SCH (07:00)
[2019-07-12] MEDS: LOSARTAN POTASSIUM 50 MG TABLET (FP) PO SCH (09:43)
[2019-07-12] MEDS: amLODIPine BESYLATE 5 MG TABLET (FP) PO SCH (09:43)
[2019-07-12] MEDS: QUEtiapine FUMARATE 25 MG TABLET PO SCH (09:44)
--- NOTE | 2019-07-12 12:04 | PN ---
Progress Note, Physician Chief Complaint: AMS - Current Medication List Current Medications: Active Medications Amlodipine Besylate (Norvasc -) 5 mg PO DAILY [facility] Last Admin: 07/12/19 09:43 Dose: 5 mg Donepezil HCl (Aricept -) 5 mg PO DAILY [facility] Last Admin: 07/11/19 15:58 Dose: 5 mg Heparin Sodium (Porcine) (Heparin -) 5,000 unit SQ TID [facility] Last Admin: 07/12/19 06:50 Dose: 5,000 unit Sodium Chloride (Normal Saline -) 1,000 mls @ 75 mls/hr IV ASDIR [facility] Last Admin: 07/12/19 06:51 Dose: Not Given Insulin Aspart (Novolog Vial Sliding Scale -) 1 vial SQ ACHS [facility]; Protocol Last Admin: 07/12/19 06:51 Dose: Not Given Insulin Detemir (Levemir Vial) 10 units SQ AM [facility] Last Admin: 07/12/19 06:50 Dose: 10 units Lorazepam (Ativan Injection -) 2 mg IM ONCE ONE Stop: 07/11/19 17:11 Losartan Potassium (Cozaar -) 50 mg PO DAILY [facility] Last Admin: 07/12/19 09:43 Dose: 50 mg Quetiapine Fumarate (Seroquel -) 12.5 mg PO DAILY [facility] Last Admin: 07/12/19 09:44 Dose: 12.5 mg - Objective Vital Signs: Vital Signs Temperature 98.3 F 07/12/19 06:00 Pulse Rate 80 07/12/19 06:00 Respiratory Rate 18 07/12/19 06:00 Blood Pressure 151/94 07/12/19 06:00 O2 Sat by Pulse Oximetry (%) 98 07/11/19 19:42 Labs: CBC, BMP 07/10/19 06:42 07/12/19 05:20 INR, PTT INR 1.11 (0.83-1.09) H 07/09/19 04:27
--- NOTE | 2019-07-12 12:04 | PN ---
Progress Note, Physician History of Present Illness: Pt seen and examined at bedside. He remains confused. - Current Medication List Current Medications: Active Medications Amlodipine Besylate (Norvasc -) 5 mg PO DAILY [facility] Last Admin: 07/12/19 09:43 Dose: 5 mg Donepezil HCl (Aricept -) 5 mg PO DAILY [facility] Last Admin: 07/11/19 15:58 Dose: 5 mg Heparin Sodium (Porcine) (Heparin -) 5,000 unit SQ TID [facility] Last Admin: 07/12/19 06:50 Dose: 5,000 unit Sodium Chloride (Normal Saline -) 1,000 mls @ 75 mls/hr IV ASDIR [facility] Last Admin: 07/12/19 06:51 Dose: Not Given Insulin Aspart (Novolog Vial Sliding Scale -) 1 vial SQ ACHS [facility]; Protocol Last Admin: 07/12/19 06:51 Dose: Not Given Insulin Detemir (Levemir Vial) 10 units SQ AM [facility] Last Admin: 07/12/19 06:50 Dose: 10 units Lorazepam (Ativan Injection -) 2 mg IM ONCE ONE Stop: 07/11/19 17:11 Losartan Potassium (Cozaar -) 50 mg PO DAILY [facility] Last Admin: 07/12/19 09:43 Dose: 50 mg Quetiapine Fumarate (Seroquel -) 12.5 mg PO DAILY [facility] Last Admin: 07/12/19 09:44 Dose: 12.5 mg - Objective Vital Signs: Vital Signs Temperature 98.3 F 07/12/19 06:00 Pulse Rate 80 07/12/19 06:00 Respiratory Rate 18 07/12/19 06:00 Blood Pressure 151/94 07/12/19 06:00 O2 Sat by Pulse Oximetry (%) 98 07/11/19 19:42 Constitutional: Yes: Calm Eyes: Yes: Conjunctiva Clear HENT: Yes: Atraumatic Neck: Yes: Supple Cardiovascular: Yes: S1, S2 Respiratory: Yes: CTA Bilaterally Gastrointestinal: Yes: Soft Genitourinary: Yes: WNL Musculoskeletal: Yes: WNL Edema: LLE: Trace, RLE: Trace Neurological: Yes: Confusion Labs: CBC, BMP 07/10/19 06:42 07/12/19 05:20 INR, PTT INR 1.11 (0.83-1.09) H 07/09/19 04:27 Problem List - Problems (1) CAD (coronary artery disease) Code(s): I25.10 - ATHSCL HEART DISEASE OF [place] CORONARY ARTERY W/O ANG PCTRS (2) CKD (chronic kidney disease) Code(s): N18.9 - CHRONIC KIDNEY DISEASE, UNSPECIFIED Assessment/Plan Current Medications Generic Name Dose Route Start Last Admin Trade Name Freq PRN Reason Stop Dose Admin Amlodipine Besylate 5 mg 07/11/19 10:00 07/12/19 09:43 Norvasc - PO 5 mg DAILY SHOBHA Administration Donepezil HCl 5 mg 07/11/19 10:00 07/11/19 15:58 Aricept - PO 5 mg DAILY SHOBHA Administration Heparin Sodium (Porcine) 5,000 unit 07/09/19 06:15 07/12/19 06:50 Heparin - SQ 5,000 unit TID SHOBHA Administration Sodium Chloride 1,000 mls @ 75 mls/hr 07/09/19 06:52 07/12/19 06:51 Normal Saline - IV Not Given ASDIR [facility] Insulin Aspart 1 vial 07/09/19 07:00 07/12/19 06:51 Novolog Vial Sliding Scale - SQ Not Given ACHS [facility] Protocol Insulin Detemir 10 units 07/12/19 07:00 07/12/19 06:50 Levemir Vial SQ 10 units AM SHOBHA Administration Lorazepam 2 mg 07/11/19 17:10 Ativan Injection - IM 07/11/19 17:11 ONCE ONE Losartan Potassium 50 mg 07/10/19 10:00 07/12/19 09:43 Cozaar - PO 50 mg DAILY SHOBHA Administration Quetiapine Fumarate 12.5 mg 07/11/19 10:00 07/12/19 09:44 Seroquel - PO 12.5 mg DAILY SHOBHA Administration Impression 1. CKD 2. HTN 3. DM 4. confusion/altered mental status 5. bilateral renal cysts Plan - renal function stable - likely ckd - can stop fluids and observe - pt with bilateral renal cysts
[2019-07-12] MEDS: DONEPEZIL HCL 5 MG TABLET (FP) PO SCH (12:11)
--- NOTE | 2019-07-12 16:48 | EKG ---
Test Reason : Blood Pressure : / mmHG Vent. Rate : 097 BPM Atrial Rate : 097 BPM P-R Int : 158 ms QRS Dur : 120 ms QT Int : 376 ms P-R-T Axes : 043 -09 111 degrees QTc Int : 477 ms POOR DATA QUALITY, INTERPRETATION MAY BE ADVERSELY AFFECTED NORMAL SINUS RHYTHM INFERIOR INFARCT (CITED ON OR BEFORE 09-APR-2015) ABNORMAL ECG Confirmed by MD KASSANDRA, WILLIAM ([id number]) on 07/12/2019 4:48:18 PM Referred By: Confirmed By:WILLIAM CANNON MD
--- NOTE | 2019-07-12 23:19 | PN ---
Progress Note, Physician Chief Complaint: anxious sitting in chair confused - Current Medication List Current Medications: Active Medications Amlodipine Besylate (Norvasc -) 5 mg PO DAILY [facility] Last Admin: 07/12/19 09:43 Dose: 5 mg Donepezil HCl (Aricept -) 5 mg PO DAILY [facility] Last Admin: 07/11/19 15:58 Dose: 5 mg Heparin Sodium (Porcine) (Heparin -) 5,000 unit SQ TID [facility] Last Admin: 07/12/19 22:21 Dose: Not Given Sodium Chloride (Normal Saline -) 1,000 mls @ 75 mls/hr IV ASDIR [facility] Last Admin: 07/12/19 06:51 Dose: Not Given Insulin Aspart (Novolog Vial Sliding Scale -) 1 vial SQ ACHS [facility]; Protocol Last Admin: 07/12/19 22:22 Dose: Not Given Insulin Detemir (Levemir Vial) 10 units SQ AM [facility] Last Admin: 07/12/19 06:50 Dose: 10 units Lorazepam (Ativan Injection -) 2 mg IM ONCE ONE Stop: 07/11/19 17:11 Losartan Potassium (Cozaar -) 50 mg PO DAILY [facility] Last Admin: 07/12/19 09:43 Dose: 50 mg Quetiapine Fumarate (Seroquel -) 12.5 mg PO DAILY [facility] Last Admin: 07/12/19 09:44 Dose: 12.5 mg - Objective Vital Signs: Vital Signs Temperature 98.2 F 07/12/19 17:00 Pulse Rate 92 H 07/12/19 17:00 Respiratory Rate 17 07/12/19 20:41 Blood Pressure 118/74 07/12/19 17:00 O2 Sat by Pulse Oximetry (%) 98 07/12/19 20:41 Constitutional: Yes: Anxious Eyes: Yes: EOM Intact HENT: Yes: Normocephalic Neck: Yes: Trachea Midline Cardiovascular: Yes: Regular Rate and Rhythm Respiratory: Yes: CTA Bilaterally Gastrointestinal: Yes: Normal Bowel Sounds ...Rectal Exam: Yes: Deferred Genitourinary: Yes: WNL Musculoskeletal: Yes: Muscle Weakness Extremities: Yes: WNL Edema: No Neurological: Yes: Confusion Labs: CBC, BMP 07/10/19 06:42 07/12/19 05:20 INR, PTT INR 1.11 (0.83-1.09) H 07/09/19 04:27 Problem List - Problems (1) Controlled diabetes mellitus with hyperglycemia, with long-term current use of insulin Problems reviewed: Yes Code(s): E11.65 - TYPE 2 DIABETES MELLITUS WITH HYPERGLYCEMIA; Z79.4 - HUSBANDRY PERSON (CURRENT) USE OF INSULIN Qualifiers: Diabetes mellitus type: type 2 (2) Altered mental status Code(s): R41.82 - ALTERED MENTAL STATUS, UNSPECIFIED (3) CAD (coronary artery disease) Code(s): I25.10 - ATHSCL HEART DISEASE OF [place] CORONARY ARTERY W/O ANG PCTRS (4) CKD (chronic kidney disease) Code(s): N18.9 - CHRONIC KIDNEY DISEASE, UNSPECIFIED (5) Elevated troponin Code(s): R79.89 - OTHER SPECIFIED ABNORMAL FINDINGS OF BLOOD CHEMISTRY (6) HTN (hypertension) Code(s): I10 - ESSENTIAL (PRIMARY) HYPERTENSION (7) Diabetes Code(s): E11.9 - TYPE 2 DIABETES MELLITUS WITHOUT COMPLICATIONS Qualifiers: Diabetes mellitus type: type 2 Diabetes mellitus complication status: with hyperglycemia Qualified Code(s): E11.65 - Type 2 diabetes mellitus with hyperglycemia (8) Epididymo-orchitis Code(s): N45.3 - EPIDIDYMO-ORCHITIS (9) Lower back pain Code(s): M54.5 - LOW BACK PAIN Qualifiers: Chronicity: acute Back pain laterality: right Sciatica presence: with sciatica Sciatica laterality: sciatica of right side Qualified Code(s): M54.41 - Lumbago with sciatica, right side Assessment/Plan Current Active Problems Altered mental status (Acute) CAD (coronary artery disease) (Acute) CKD (chronic kidney disease) (Acute) Controlled diabetes mellitus with hyperglycemia, with long-term current use of insulin (Acute) Elevated troponin (Acute) HTN (hypertension) (Acute) Laboratory Results - last 24 hr 07/11/19 07/12/19 07/12/19 05:15 05:20 12:22 Sodium 142 Potassium 3.7 Chloride 110 H Carbon Dioxide 26 Anion Gap 6 L BUN 22.9 H Creatinine 1.8 H Est GFR (CKD-EPI)AfAm 40.87 Est GFR (CKD-EPI)NonAf 35.26 POC Glucometer 191 Random Glucose 102 Calcium 8.2 L PRACHI Screen Negative Thyroglobulin Antibody < 1.0 Thyroid Peroxidase Ab 13 07/12/19 16:31 Sodium Potassium Chloride Carbon Dioxide Anion Gap BUN Creatinine Est GFR (CKD-EPI)AfAm Est GFR (CKD-EPI)NonAf POC Glucometer 208 Random Glucose Calcium PRACHI Screen Thyroglobulin Antibody Thyroid Peroxidase Ab plan:\ bgm qid ac meals levemir 15 units am daily
[2019-07-13] MEDS: HEPARIN NA (PORCINE) 5,000 UNITS/ML 1ML VIAL SQ SCH ×2 (06:19→15:19)
[2019-07-13] MEDS: INSULIN SLIDING SCALE (NOVOLOG) 1 VIAL SQ SCH ×4 (06:20→21:30)
[2019-07-13] MEDS: INSULIN (LEVEMIR) 100 UNITS/ML UNITS SQ SCH (06:58)
--- NOTE | 2019-07-13 08:01 | DS ---
Physical Examination Vital Signs: Vital Signs Temperature 98.2 F 07/13/19 05:00 Pulse Rate 90 07/13/19 05:00 Respiratory Rate 17 07/13/19 05:00 Blood Pressure 152/88 07/13/19 05:00 O2 Sat by Pulse Oximetry (%) 98 07/12/19 20:41 Labs: CBC, BMP 07/10/19 06:42 07/12/19 05:20 Discharge Summary Problems reviewed: Yes Reason For Visit: ACUTE KIDNEY INJURY,ELEVATED TROPONIN LEVEL Current Active Problems Altered mental status (Acute) CAD (coronary artery disease) (Acute) CKD (chronic kidney disease) (Acute) Controlled diabetes mellitus with hyperglycemia, with long-term current use of insulin (Acute) Elevated troponin (Acute) HTN (hypertension) (Acute) Hospital Course: - Problems (1) Altered mental status Assessment/Plan: probably dementia start aricept and seraquel Neurology and Cardiology consult--MRI noted Head CT scan shows mild to moderate volume loss and and moderate to marked periventricular chronic microvascular ischemic disease changes, no CT evidence of acute intracranial pathology, mild ehtmoid chronic sinusitis neuro check Code(s): R41.82 - ALTERED MENTAL STATUS, UNSPECIFIED (2) Diabetes Assessment/Plan: BGM ACHS ISS [id number]--Sqbg Code(s): E11.9 - TYPE 2 DIABETES MELLITUS WITHOUT COMPLICATIONS Qualifiers: Diabetes mellitus type: type 2 Diabetes mellitus complication status: with hyperglycemia Qualified Code(s): E11.65 - Type 2 diabetes mellitus with hyperglycemia (3) HTN (hypertension) Assessment/Plan: Losartan low Na diet Code(s): I10 - ESSENTIAL (PRIMARY) HYPERTENSION (4) Elevated troponin Assessment/Plan: Cardiology consult appreciated no further work up tele monitoring trop 0.26~0.25 Echo monitor trop for downtrend Code(s): R79.89 - OTHER SPECIFIED ABNORMAL FINDINGS OF BLOOD CHEMISTRY dc planning for home care vs snf Physical therapy Condition: Fair - Instructions Referrals: Sergo Lopez [Primary Care Provider] - 1 Week - Home Medications Comprehensive Discharge Medication List: Ambulatory Orders Amlodipine Besylate [Norvasc -] 5 mg PO DAILY #30 tablet 07/13/19 Donepezil HCl [Aricept -] 5 mg PO DAILY #30 tablet 07/13/19 Insulin (Levemir) [Levemir Vial] 15 units SQ AM #3 syringe 07/13/19 Insulin Sliding Scale [Novolog Vial Sliding Scale -] 1 vial SQ ACHS units 07/13 Losartan Potassium [Cozaar -] 50 mg PO DAILY #30 tablet 07/13/19 Quetiapine Fumarate [Seroquel -] 12.5 mg PO DAILY #30 tablet 07/13/19
[2019-07-13] MEDS ORDERED: PT OWN MED DRAWER 7, Y5N ONE ×2 (09:51→09:52)
[2019-07-13] MEDS: QUEtiapine FUMARATE 25 MG TABLET PO SCH (10:21)
[2019-07-13] MEDS: LOSARTAN POTASSIUM 50 MG TABLET (FP) PO SCH (10:22)
[2019-07-13] MEDS: DONEPEZIL HCL 5 MG TABLET (FP) PO SCH (10:22)
[2019-07-13] MEDS: amLODIPine BESYLATE 5 MG TABLET (FP) PO SCH (10:22)
[2019-07-13] MEDS: SODIUM CHLORIDE 1,000 ML IV SCH (12:06)
--- NOTE | 2019-07-13 13:05 | PN ---
Progress Note, Physician History of Present Illness: Pt seen and examined at bedside. He is awake but confused. - Current Medication List Current Medications: Active Medications Amlodipine Besylate (Norvasc -) 5 mg PO DAILY [facility] Last Admin: 07/13/19 10:22 Dose: Not Given Donepezil HCl (Aricept -) 5 mg PO DAILY [facility] Last Admin: 07/13/19 10:22 Dose: Not Given Heparin Sodium (Porcine) (Heparin -) 5,000 unit SQ TID [facility] Last Admin: 07/13/19 06:19 Dose: 5,000 unit Sodium Chloride (Normal Saline -) 1,000 mls @ 75 mls/hr IV ASDIR [facility] Last Admin: 07/13/19 12:06 Dose: Not Given Insulin Aspart (Novolog Vial Sliding Scale -) 1 vial SQ ACHS [facility]; Protocol Last Admin: 07/13/19 12:06 Dose: Not Given Insulin Detemir (Levemir Vial) 15 units SQ AM [facility] Last Admin: 07/13/19 06:58 Dose: 15 units Lorazepam (Ativan Injection -) 2 mg IM ONCE ONE Stop: 07/11/19 17:11 Losartan Potassium (Cozaar -) 50 mg PO DAILY [facility] Last Admin: 07/13/19 10:22 Dose: Not Given Quetiapine Fumarate (Seroquel -) 12.5 mg PO DAILY [facility] Last Admin: 07/13/19 10:21 Dose: Not Given - Objective Vital Signs: Vital Signs Temperature 98.2 F 07/13/19 05:00 Pulse Rate 90 07/13/19 05:00 Respiratory Rate 17 07/13/19 09:00 Blood Pressure 152/88 07/13/19 05:00 O2 Sat by Pulse Oximetry (%) 98 07/13/19 09:00 Constitutional: Yes: Calm Eyes: Yes: Conjunctiva Clear HENT: Yes: Atraumatic Neck: Yes: Supple Cardiovascular: Yes: S1, S2 Respiratory: Yes: CTA Bilaterally Gastrointestinal: Yes: Normal Bowel Sounds, Soft Genitourinary: Yes: WNL Musculoskeletal: Yes: WNL Edema: No Neurological: Yes: Confusion Labs: CBC, BMP 07/10/19 06:42 07/12/19 05:20 INR, PTT INR 1.11 (0.83-1.09) H 07/09/19 04:27 Problem List - Problems (1) CAD (coronary artery disease) Code(s): I25.10 - ATHSCL HEART DISEASE OF [place] CORONARY ARTERY W/O ANG PCTRS (2) CKD (chronic kidney disease) Code(s): N18.9 - CHRONIC KIDNEY DISEASE, UNSPECIFIED Assessment/Plan Current Medications Generic Name Dose Route Start Last Admin Trade Name Freq PRN Reason Stop Dose Admin Amlodipine Besylate 5 mg 07/11/19 10:00 07/13/19 10:22 Norvasc - PO Not Given DAILY [facility] Donepezil HCl 5 mg 07/11/19 10:00 07/13/19 10:22 Aricept - PO Not Given DAILY [facility] Heparin Sodium (Porcine) 5,000 unit 07/09/19 06:15 07/13/19 06:19 Heparin - SQ 5,000 unit TID [facility] Administration Sodium Chloride 1,000 mls @ 75 mls/hr 07/09/19 06:52 07/13/19 12:06 Normal Saline - IV Not Given ASDIR [facility] Insulin Aspart 1 vial 07/09/19 07:00 07/13/19 12:06 Novolog Vial Sliding Scale - SQ Not Given ACHS [facility] Protocol Insulin Detemir 15 units 07/12/19 23:19 07/13/19 06:58 Levemir Vial SQ 15 units AM [facility] Administration Lorazepam 2 mg 07/11/19 17:10 Ativan Injection - IM 07/11/19 17:11 ONCE ONE Losartan Potassium 50 mg 07/10/19 10:00 07/13/19 10:22 Cozaar - PO Not Given DAILY [facility] Quetiapine Fumarate 12.5 mg 07/11/19 10:00 07/13/19 10:21 Seroquel - PO Not Given DAILY [facility] Impression 1. CKD 2. HTN 3. DM 4. confusion/altered mental status 5. bilateral renal cysts Plan - pt will need outpt follow up - renal function stable for now - 2 gram sodium diet - avoid nsaids - stable off of fluids - pt with bilateral renal cysts, will need follow up
[2019-07-13] MEDS ORDERED: INSULIN (NOVOLOG) ASPART 100 UNITS/ML 10ML VIAL ONE (17:27)
--- NOTE | 2019-07-13 17:28 | PN ---
Progress Note (short form) - Note Progress Note: HPI : 79 y/o M with PMH IDDM, HLD, HTN, cath s/p stent who presented to the ED brought by family after being found wandering around his neighborhood in his [facility]. Reportedly, pt has been behaving erratically for the last 2-3 months, so his family flew him up to the [place] to be evaluated. Prior to this, his behavior was reportedly normal. son in law present, pt still confused , thinks he is here for his heart; denies REINA , focal weakness, numbness. denies toxic habits. UA (-), tox (-), WBC (-), CT HD as below CT HD : Impression: Qusa-el-hyojnhod volume loss and moderate to marked periventricular chronic microvascular ischemic disease changes. No CT evidence of acute intracranial pathology is identified. Correlate clinically to determine further evaluation and follow-up. Mild ethmoid chronic sinusitis FU : memory issues > one yr, wanderings spells etc family unable to care for him no fam HX of dementia that they are aware of A1c 12.3 , MRI BRAIn Impression. Moderate supratentorial periventricular, centrum semiovale, subcortical white matter microangiopathic ischemic changes, gliosis. Brainstem gliosis. Microangiopathic ischemic changes, gliosis in thalami appear Multiple foci of CSF signal intensity (Etat crible) in bilateral basal ganglia. Punctate hyperintensity on diffusion-weighted images is seen in the right basal ganglia without corresponding low signal intensity on ADC may represent subacute, early chronic lacunar infarct. No acute stroke is seen on the diffusion-weighted images. Supratentorial multiple peripheral cortical, subcortical microbleeds are noted. Microbleeds located in cortical-subcortical regions are presumably caused by cerebral amyloid angiopathy. - Alcohol/Substance Use Hx Alcohol Use: No - Smoking History Smoking history: Never smoked Have you smoked in the past 12 months: No Home Medications - Allergies Allergies/Adverse Reactions: Allergies Allergy/AdvReac Type Severity Reaction Status Date / Time No Known Allergies Allergy Verified 07/09/19 04:06 - Home Medications Home Medications: Ambulatory Orders Unobtainable 07/09/19 Physical Exam-Neuro Vital Signs: Vital Signs Temperature 98.2 F 07/13/19 05:00 Pulse Rate 90 07/13/19 05:00 Respiratory Rate 17 07/13/19 09:00 Blood Pressure 152/88 02/27/20 05:00 O2 Sat by Pulse Oximetry (%) 98 07/13/19 09:00 Constitutional: Yes: Well Nourished, No Distress (awake , limited orientation - - think it is 2006, in a clinic;EOMI, no facial, no asterixis, no focal weakness , no nuchal rigidity , giat not tested; ) Labs: CBCD WBC 5.9 K/mm3 (4.0-10.0) 07/10/19 06:42 RBC 4.77 M/mm3 (4.00-5.60) 07/10/19 06:42 Hgb 14.5 GM/dL (11.7-16.9) 07/10/19 06:42 Hct 42.3 % (35.4-49) 07/10/19 06:42 MCV 88.6 fl (80-96) 07/10/19 06:42 MCHC 34.2 g/dl (32.0-35.9) 07/10/19 06:42 RDW 13.6 % (11.9-15.9) 07/10/19 06:42 Plt Count 214 K/MM3 (134-434) 07/10/19 06:42 MPV 8.0 fl (7.5-11.1) 07/10/19 06:42 CMP Sodium 141 mmol/L (136-145) 07/10/19 06:42 Potassium 4.0 mmol/L (3.5-5.1) 07/10/19 06:42 Chloride 110 mmol/L (98-107) H 07/10/19 06:42 Carbon Dioxide 23 mmol/L (21-32) 07/10/19 06:42 Anion Gap 8 MMOL/L (8-16) 07/10/19 06:42 BUN 31.0 mg/dL (7-18) H 07/10/19 06:42 Creatinine 1.8 mg/dL (0.55-1.3) H 07/10/19 06:42 Calcium 9.0 mg/dL (8.5-10.1) 07/10/19 06:42 Total Bilirubin 0.5 mg/dL (0.2-1) 07/10/19 06:42 AST 28 U/L (15-37) 07/10/19 06:42 ALT 28 U/L (13-61) 07/10/19 06:42 Alkaline Phosphatase 89 U/L (45-117) 07/10/19 06:42 Total Protein 7.5 g/dl (6.4-8.2) 07/10/19 06:42 Albumin 3.8 g/dl (3.4-5.0) 07/10/19 06:42 Imaging - Results Cat Scan: Report Reviewed, Image Reviewed Problem List - Problems (1) Altered mental status Code(s): R41.82 - ALTERED MENTAL STATUS, UNSPECIFIED (2) CAD (coronary artery disease) Code(s): I25.10 - ATHSCL HEART DISEASE OF [place] CORONARY ARTERY W/O ANG PCTRS Assessment/Plan 79 y/o M with PMH IDDM, HLD, HTN, cath s/p stent who presented to the ED brought by family after being found wandering around his neighborhood in his [facility]. Reportedly, pt has been behaving erratically for the last 2-3 months, so his [place] be [place]. Prior to this, his behavior was reportedly normal. UA (-), tox (-), WBC (-), CT HD as below CT HD : Impression: Gwas-hv-yevfbyub volume loss and moderate to marked periventricular chronic microvascular ischemic disease changes. No CT evidence of acute intracranial pathology is identified. Correlate clinically to determine further evaluation and follow-up. Mild ethmoid chronic sinusitis AP : subacute encephalopathy-- no clear evidence of toxic habits , metabolic vs structural, less likely encephalitis /meningitis given time course ; given more hx may represent a frontemporal dementia vs ALZ dementia vs vascular dementia DM uncontrolled - to be optimized MRI BRAIN - mod vascular disease changes, no structural pathology PRACHI (-) , TPO AB (-) , ESR , RPR, (-) can FU as outpt DR DASH Problem List - Problems (1) Altered mental status Code(s): R41.82 - ALTERED MENTAL STATUS, UNSPECIFIED (2) CAD (coronary artery disease) Code(s): I25.10 - ATHSCL HEART DISEASE OF [place] CORONARY ARTERY W/O ANG PCTRS
[2019-07-13] MEDS ORDERED: ALPRAZolam 0.25 MG TABLET PO STA (20:10)
--- NOTE | 2019-07-13 20:26 | CONS ---
PHYSICAL MEDICINE REHABILITATION CONSULTATION DATE OF CONSULTATION: 07/12/2019 HISTORY OF PRESENT ILLNESS: The patient is a 79-year-old man who was admitted on July 09, 2019, with confusion. The patient evidently has a history of hypertension, uncontrolled diabetes and has been in the [place] for the last few months. He developed confusion and was brought back to the [facility], where he has undergone workup. On admission July 09 his WBC was 6.1, hemoglobin 15.1, platelet count 217, BUN 24, creatinine 1.8. He had an elevated troponin of 0.25. TSH was normal at 1.48. Otherwise chemistry was normal. CT of the head showed mild to moderate volume loss, moderate to marked periventricular chronic microvascular ischemic changes. Chest x-ray showed no acute chest pathology. The patient did have a hemoglobin A1C which was 12.3. Troponins continued to be elevated on July 10, as did his BUN 31, creatinine 1.8. The patient's most recent blood work on July 12, chemistry demonstrated sodium 142, potassium 3.7, elevated BUN at 22.9 and creatinine 1.8. The patient was evaluated by Infectious Disease as well as Neurology. He underwent an MRI of the brain on July 12 which showed microvascular ischemic changes, brainstem gliosis, multiple foci of CSF signal intensity in the bilateral basal ganglion. No acute CVA was noted. The patient was seen by physical therapy. Able to ambulate 125 feet at a contact guard level without assistive device. REVIEW OF PAST MEDICAL AND SURGICAL HISTORY: As above. Diabetes which is uncontrolled, hypertension, coronary artery disease status post stent. SOCIAL HISTORY: No history of any alcohol or substance abuse. Premorbidly independent. REVIEW OF SYSTEMS: The patient denies any dizziness, lightheadedness, blurry vision, double vision, chest pain, shortness of breath, fever, chills, bowel or bladder incontinence, gait instability, nausea or vomiting, difficulty swallowing or chewing, joint arthralgias. PHYSICAL EXAMINATION: General: Friendly man seen lying in bed. He is awake and cooperative, although he seems to be confused. HEENT: Normocephalic and atraumatic. Extraocular muscles appear intact. Neck: Supple. Extremities: Without any pitting edema or calf tenderness. Skin: He has no skin discoloration or breakdown. Neuromuscular: He is awake, alert but not oriented. He is confused. Cranial nerves 2-12 grossly intact. He has good strength and range in his upper and lower limbs ,normal sensation in the upper extremities, possibly diminished in the distal lower extremities but no gross arthritic change. OVERALL IMPRESSION: 1. Mild deficits in mobility and activities of daily living. 2. Poor safety awareness. 3. Altered mental status, possible dementia, workup in progress. 4. Uncontrolled diabetes. 5. Possibly underlying diabetic polyneuropathy. 6. Chronic renal insufficiency. 7. Coronary artery disease status post stent. 8. Elevated risk for deep venous thrombosis due to immobility. 9. Increased risk for skin breakdown due to immobility. PLAN/SUGGESTION: 1. Continue to mobilize. 2. Discharge planning. 3. Out of bed to chair. 4. May require 24-hour care. 5. Follow-up blood work for Dr. Mccall. 6. Skin precautions. 7. Will follow up as outpatient. ALBERTINA TUCKER M.D. [id number]
[2019-07-14] MEDS: SODIUM CHLORIDE 1,000 ML IV SCH (07:02)
[2019-07-14] MEDS: INSULIN (LEVEMIR) 100 UNITS/ML UNITS SQ SCH (07:03)
[2019-07-14] MEDS: INSULIN SLIDING SCALE (NOVOLOG) 1 VIAL SQ SCH ×3 (07:03→17:18)
--- NOTE | 2019-07-14 08:18 | DS ---
Physical Examination Vital Signs: Vital Signs Temperature 98 F 07/13/19 23:00 Pulse Rate 92 H 07/14/19 04:00 Respiratory Rate 14 07/14/19 04:00 Blood Pressure 164/70 07/14/19 04:00 O2 Sat by Pulse Oximetry (%) 98 07/13/19 20:00 Cardiovascular: Yes: S1, S2 Respiratory: Yes: Regular, CTA Bilaterally Gastrointestinal: Yes: Normal Bowel Sounds, Soft Neurological: Yes: Alert, Oriented Labs: CBC, BMP 07/10/19 06:42 07/12/19 05:20 Discharge Summary Problems reviewed: Yes Reason For Visit: ACUTE KIDNEY INJURY,ELEVATED TROPONIN LEVEL Current Active Problems Altered mental status (Acute) CAD (coronary artery disease) (Acute) CKD (chronic kidney disease) (Acute) Controlled diabetes mellitus with hyperglycemia, with long-term current use of insulin (Acute) Elevated troponin (Acute) HTN (hypertension) (Acute) Hospital Course: - Problems (1) Altered mental status Assessment/Plan: probably dementia start aricept and seraquel Neurology and Cardiology consult--MRI noted Head CT scan shows mild to moderate volume loss and and moderate to marked periventricular chronic microvascular ischemic disease changes, no CT evidence of acute intracranial pathology, mild ehtmoid chronic sinusitis neuro check Code(s): R41.82 - ALTERED MENTAL STATUS, UNSPECIFIED (2) Diabetes Assessment/Plan: [facility] ACHS ISS [id number]--[id number]--Lbhn Code(s): E11.9 - TYPE 2 DIABETES MELLITUS WITHOUT COMPLICATIONS Qualifiers: Diabetes mellitus type: type 2 Diabetes mellitus complication status: with hyperglycemia Qualified Code(s): E11.65 - Type 2 diabetes mellitus with hyperglycemia (3) HTN (hypertension) Assessment/Plan: Losartan low Na diet Code(s): I10 - ESSENTIAL (PRIMARY) HYPERTENSION (4) Elevated troponin Assessment/Plan: Cardiology consult appreciated no further work up tele monitoring trop 0.26~0.25 Echo monitor trop for downtrend Code(s): R79.89 - OTHER SPECIFIED ABNORMAL FINDINGS OF BLOOD CHEMISTRY dc planning for home care vs snf Physical therapy Condition: Fair - Instructions Referrals: Sergo Lopez [Primary Care Provider] - 1 Week - Home Medications Comprehensive Discharge Medication List: Ambulatory Orders Amlodipine Besylate [Norvasc -] 5 mg PO DAILY #30 tablet 07/13/19 Donepezil HCl [Aricept -] 5 mg PO DAILY #30 tablet 07/13/19 Insulin (Levemir) [Levemir Vial] 15 units SQ AM #3 syringe 07/13/19 Insulin Sliding Scale [Novolog Vial Sliding Scale -] 1 vial SQ ACHS units 07/13 Losartan Potassium [Cozaar -] 50 mg PO DAILY #30 tablet 07/13/19 Quetiapine Fumarate [Seroquel -] 12.5 mg PO DAILY #30 tablet 07/13/19
[2019-07-14] MEDS ORDERED: PT OWN MED DRAWER 7, Y5N ONE (09:39)
[2019-07-14] MEDS: LOSARTAN POTASSIUM 50 MG TABLET (FP) PO SCH (09:42)
[2019-07-14] MEDS: amLODIPine BESYLATE 5 MG TABLET (FP) PO SCH (09:42)
[2019-07-14] MEDS: QUEtiapine FUMARATE 25 MG TABLET PO SCH (09:42)
[2019-07-14 09:48] VITALS: BP 120/63
[2019-07-14] MEDS: DONEPEZIL HCL 5 MG TABLET (FP) PO SCH (12:00)
--- NOTE | 2019-07-14 12:00 | PN ---
Progress Note, Physician History of Present Illness: Pt seen and examined at bedside. He is awake and alert; he is however confused. - Current Medication List Current Medications: Active Medications Amlodipine Besylate (Norvasc -) 5 mg PO DAILY [facility] Last Admin: 07/14/19 09:42 Dose: 5 mg Donepezil HCl (Aricept -) 5 mg PO DAILY [facility] Last Admin: 07/11/19 15:58 Dose: 5 mg Sodium Chloride (Normal Saline -) 1,000 mls @ 75 mls/hr IV ASDIR [facility] Last Admin: 07/14/19 07:02 Dose: Not Given Insulin Aspart (Novolog Vial Sliding Scale -) 1 vial SQ ACHS [facility]; Protocol Last Admin: 07/14/19 07:03 Dose: Not Given Insulin Detemir (Levemir Vial) 15 units SQ AM [facility] Last Admin: 07/14/19 07:03 Dose: 15 units Lorazepam (Ativan Injection -) 2 mg IM ONCE ONE Stop: 07/11/19 17:11 Losartan Potassium (Cozaar -) 50 mg PO DAILY [facility] Last Admin: 07/14/19 09:42 Dose: 50 mg Quetiapine Fumarate (Seroquel -) 12.5 mg PO DAILY [facility] Last Admin: 07/14/19 09:42 Dose: 12.5 mg Quetiapine Fumarate (Seroquel -) 12.5 mg PO ONCE ONE Stop: 07/14/19 18:16 - Objective Vital Signs: Vital Signs Temperature 98.2 F 07/14/19 08:00 Pulse Rate 95 H 07/14/19 08:00 Respiratory Rate 18 07/14/19 09:00 Blood Pressure 120/63 07/14/19 08:00 O2 Sat by Pulse Oximetry (%) 98 07/14/19 09:00 Constitutional: Yes: Calm Eyes: Yes: Conjunctiva Clear HENT: Yes: Atraumatic Cardiovascular: Yes: S1, S2 Respiratory: Yes: CTA Bilaterally Gastrointestinal: Yes: Soft Genitourinary: Yes: WNL Musculoskeletal: Yes: WNL Edema: No Neurological: Yes: Confusion Labs: CBC, BMP 07/10/19 06:42 07/12/19 05:20 INR, PTT INR 1.11 (0.83-1.09) H 07/09/19 04:27 Problem List - Problems (1) CAD (coronary artery disease) Code(s): I25.10 - ATHSCL HEART DISEASE OF [place] CORONARY ARTERY W/O ANG PCTRS (2) CKD (chronic kidney disease) Code(s): N18.9 - CHRONIC KIDNEY DISEASE, UNSPECIFIED Assessment/Plan Current Medications Generic Name Dose Route Start Last Admin Trade Name Freq PRN Reason Stop Dose Admin Amlodipine Besylate 5 mg 07/11/19 10:00 07/14/19 09:42 Norvasc - PO 5 mg DAILY [facility] Administration Donepezil HCl 5 mg 07/11/19 10:00 07/11/19 15:58 Aricept - PO 5 mg DAILY [facility] Administration Sodium Chloride 1,000 mls @ 75 mls/hr 07/09/19 06:52 07/14/19 07:02 Normal Saline - IV Not Given ASDIR [facility] Insulin Aspart 1 vial 07/09/19 07:00 07/14/19 07:03 Novolog Vial Sliding Scale - SQ Not Given ACHS [facility] Protocol Insulin Detemir 15 units 07/12/19 23:19 07/14/19 07:03 Levemir Vial SQ 15 units AM [facility] Administration Lorazepam 2 mg 07/11/19 17:10 Ativan Injection - IM 07/11/19 17:11 ONCE ONE Losartan Potassium 50 mg 07/10/19 10:00 07/14/19 09:42 Cozaar - PO 50 mg DAILY [facility] Administration Quetiapine Fumarate 12.5 mg 07/11/19 10:00 07/14/19 09:42 Seroquel - PO 12.5 mg DAILY [facility] Administration Quetiapine Fumarate 12.5 mg 07/14/19 18:15 Seroquel - PO 07/14/19 18:16 ONCE ONE Impression 1. CKD 2. HTN 3. DM 4. confusion/altered mental status 5. bilateral renal cysts Plan - outpt follow up for ckd - avoid nsaids - 2 gram sodium diet - no new labs - pt with bilateral renal cysts, will need follow up
[2019-07-14 13:37] VITALS: PULSE 96; TEMP 98
--- NOTE | 2019-07-14 17:29 | PN ---
Progress Note, Physician Chief Complaint: SITTING COMFORTABLE - Current Medication List Current Medications: Active Medications Amlodipine Besylate (Norvasc -) 5 mg PO DAILY [facility] Last Admin: 07/14/19 09:42 Dose: 5 mg Donepezil HCl (Aricept -) 5 mg PO DAILY [facility] Last Admin: 07/14/19 12:00 Dose: 5 mg Sodium Chloride (Normal Saline -) 1,000 mls @ 75 mls/hr IV ASDIR [facility] Last Admin: 07/14/19 07:02 Dose: Not Given Insulin Aspart (Novolog Vial Sliding Scale -) 1 vial SQ ACHS [facility]; Protocol Last Admin: 07/14/19 17:18 Dose: 2 unit Insulin Detemir (Levemir Vial) 15 units SQ AM [facility] Last Admin: 07/14/19 07:03 Dose: 15 units Lorazepam (Ativan Injection -) 2 mg IM ONCE ONE Stop: 07/11/19 17:11 Losartan Potassium (Cozaar -) 50 mg PO DAILY [facility] Last Admin: 07/14/19 09:42 Dose: 50 mg Quetiapine Fumarate (Seroquel -) 12.5 mg PO DAILY [facility] Last Admin: 07/14/19 09:42 Dose: 12.5 mg Quetiapine Fumarate (Seroquel -) 12.5 mg PO ONCE ONE Stop: 07/14/19 18:16 Last Admin: 07/14/19 17:17 Dose: 12.5 mg - Objective Vital Signs: Vital Signs Temperature 98 F 07/14/19 13:36 Pulse Rate 96 H 07/14/19 13:36 Respiratory Rate 18 07/14/19 13:36 Blood Pressure 120/63 07/14/19 08:00 O2 Sat by Pulse Oximetry (%) 98 07/14/19 09:00 Constitutional: Yes: Calm Eyes: Yes: EOM Intact HENT: Yes: Normocephalic Neck: Yes: Trachea Midline Respiratory: Yes: CTA Bilaterally Gastrointestinal: Yes: Normal Bowel Sounds ...Rectal Exam: Yes: Deferred Genitourinary: Yes: WNL Breast(s): Yes: WNL Extremities: Yes: WNL Neurological: Yes: Alert, Confusion Labs: CBC, BMP 07/10/19 06:42 07/12/19 05:20 INR, PTT INR 1.11 (0.83-1.09) H 07/09/19 04:27 Problem List - Problems (1) Controlled diabetes mellitus with hyperglycemia, with long-term current use of insulin Code(s): E11.65 - TYPE 2 DIABETES MELLITUS WITH HYPERGLYCEMIA; Z79.4 - PRN OCCUPATIONAL THERAPIST (CURRENT) USE OF INSULIN Qualifiers: Diabetes mellitus type: type 2 (2) Altered mental status Code(s): R41.82 - ALTERED MENTAL STATUS, UNSPECIFIED (3) CAD (coronary artery disease) Code(s): I25.10 - ATHSCL HEART DISEASE OF [place] CORONARY ARTERY W/O ANG PCTRS (4) CKD (chronic kidney disease) Code(s): N18.9 - CHRONIC KIDNEY DISEASE, UNSPECIFIED (5) Elevated troponin Code(s): R79.89 - OTHER SPECIFIED ABNORMAL FINDINGS OF BLOOD CHEMISTRY (6) HTN (hypertension) Code(s): I10 - ESSENTIAL (PRIMARY) HYPERTENSION (7) Diabetes Code(s): E11.9 - TYPE 2 DIABETES MELLITUS WITHOUT COMPLICATIONS Qualifiers: Diabetes mellitus type: type 2 Diabetes mellitus complication status: with hyperglycemia Qualified Code(s): E11.65 - Type 2 diabetes mellitus with hyperglycemia (8) Epididymo-orchitis Code(s): N45.3 - EPIDIDYMO-ORCHITIS (9) Lower back pain Code(s): M54.5 - LOW BACK PAIN Qualifiers: Chronicity: acute Back pain laterality: right Sciatica presence: with sciatica Sciatica laterality: sciatica of right side Qualified Code(s): M54.41 - Lumbago with sciatica, right side Assessment/Plan Current Active Problems Altered mental status (Acute) CAD (coronary artery disease) (Acute) CKD (chronic kidney disease) (Acute) Controlled diabetes mellitus with hyperglycemia, with long-term current use of insulin (Acute) Elevated troponin (Acute) HTN (hypertension) (Acute) Laboratory Results - last 24 hr 07/14/19 07/14/19 07/14/19 07:00 12:03 17:13 POC Glucometer 135 208 184 PLAN: LEVEMIR 20 UNITS AM CONTINUE BGM AC MEALS AT HOME FOLLOW WITH OUTPATIENT
[2019-07-14] MEDS ORDERED: QUEtiapine FUMARATE 25 MG TABLET PO ONE (18:15)
[2019-07-15] MEDS ORDERED: INSULIN (LEVEMIR) 100 UNITS/ML UNITS SQ SCH (07:00)
== END 2019-07-14 18:25 | DRG 71 ==
LOC: JER 03:23 → JERBED 05:36 → J2W 07-10 22:30
PROVIDERS: ADMIT Internal Medicine; ATTEND Family Medicine
DX: G93.49 Other encephalopathy (principal); N17.9 Acute kidney failure, unspecified; E78.5 Hyperlipidemia, unspecified; R00.0 Tachycardia, unspecified; I25.10 Atherosclerotic heart disease of native coronary artery without angina pectoris; E11.65 Type 2 diabetes mellitus with hyperglycemia; F03.90 Unspecified dementia, unspecified severity, without behavioral disturbance, psychotic disturbance, mood disturbance, and anxiety; M54.41 Lumbago with sciatica, right side; N28.1 Cyst of kidney, acquired; N45.3 Epididymo-orchitis; J32.2 Chronic ethmoidal sinusitis; I25.5 Ischemic cardiomyopathy; R79.89 Other specified abnormal findings of blood chemistry; I12.9 Hypertensive chronic kidney disease with stage 1 through stage 4 chronic kidney disease, or unspecified chronic kidney disease; E11.22 Type 2 diabetes mellitus with diabetic chronic kidney disease; N18.9 Chronic kidney disease, unspecified; Z95.1 Presence of aortocoronary bypass graft; Z95.5 Presence of coronary angioplasty implant and graft; Z91.14 Patient's other noncompliance with medication regimen; Z79.4 Long term (current) use of insulin
CPT/HCPCS: 36415; 36600; 70450-TC; 70551-TC; 71045-TC-FY; 76775-TC; 80048; 80053; 80307; 81003; 82140; 82375; 82550; 82803; 82962; 83036; 83050; 84443; 84484; 85025; 85610; 85651; 85730; 86038; 86376; 86593; 86800; 86850; 86900; 86901; 87040; 87077; 87086; 87389; 93005; 93010; 93306-TC; 97116-GP; 97161-GP; 99285-25; J1644; J7030

== ENCOUNTER 2021-03-05 19:41 | Inpatient (IN) | payer OTHER ==
[2021-03-05 19:58] VITALS: BMI 29.3
[2021-03-05 22:21] LABS: BASO % 1.6 % (0-2.0); EOS % 5.3 % (0-4.5); HEMATOCRIT 44.1 % (35.4-49); HEMOGLOBIN 14.7 GM/dL (11.7-16.9); LYMPH % 24.8 % (8-40); MCH 29.7 pg (25.7-33.7); MCHC 33.4 g/dl (32.0-35.9); MEAN PLT VOLUME 7.5 fl (7.5-11.1); MONO % 6.9 % (3.8-10.2); NEUT % 61.4 % (42.8-82.8); PLATELET COUNT 207 10^3/uL (134-434); RBC 4.96 M/mm3 (4.00-5.60); RDW 13.9 % (11.9-15.9); WHITE BLOOD COUNT 6.1 K/mm3 (4.0-10.0)
[2021-03-05 22:27] LABS: EPI CELLS 1 /uL (0-25.1); HYALINE CASTS 3 /uL (0-3.1); URINE APPEARANCE CLEAR; URINE BACTERIA 1578 /uL (0-1359); URINE BILIRUBIN NEGATIVE (NEGATIVE); URINE COLOR YELLOW; URINE GLUCOSE (UA) NEGATIVE (NEGATIVE); URINE KETONE NEGATIVE (NEGATIVE); URINE LEUK ESTERASE 3+ (NEGATIVE); URINE NITRITE NEGATIVE (NEGATIVE); URINE PROTEIN 1+ (NEGATIVE); URINE RBC 3 /uL (0-23.9); URINE UROBILINOGEN 0.2 mg/dL (0.2-1.0); URINE WBC 595 /uL (0-25.8)
[2021-03-05 22:54] LABS: CALCIUM 8.9 mg/dL (8.5-10.1)
[2021-03-05 22:55] LABS: ALBUMIN 3.4 g/dl (3.4-5.0); BLOOD UREA NITROGEN 27.3 mg/dL (7-18); MAGNESIUM 1.8 mg/dL (1.8-2.4)
[2021-03-05 22:58] LABS: CREATININE 1.8 mg/dL (0.55-1.3); PHOSPHOROUS 3.5 mg/dL (2.5-4.9)
[2021-03-05 22:59] LABS: BILIRUBIN,TOTAL 0.5 mg/dL (0.2-1)
[2021-03-05 23:00] LABS: TOT PROT 7.6 g/dl (6.4-8.2)
[2021-03-05] MEDS ORDERED: ASPIRIN 81 MG CHEWABLE TABLETS PO ONE (23:06)
[2021-03-05] MEDS ORDERED: ASPIRIN 81 MG CHEWABLE TABLETS ONE (23:22)
[2021-03-05] MEDS ORDERED: CEFTRIAXONE 1 GM/50 ML BAG ONE (23:23)
[2021-03-06] MEDS ORDERED: amLODIPine BESYLATE 5 MG TABLET (FP) PO ONE (01:55)
[2021-03-06] MEDS ORDERED: amLODIPine BESYLATE 5 MG TABLET (FP) ONE (02:02)
[2021-03-06 07:53] LABS: BASO % 0.9 % (0-2.0); EOS % 3.9 % (0-4.5); HEMATOCRIT 47.9 % (35.4-49); HEMOGLOBIN 15.9 GM/dL (11.7-16.9); LYMPH % 19.9 % (8-40); MCH 29.5 pg (25.7-33.7); MCHC 33.2 g/dl (32.0-35.9); MEAN CELL VOLUME 89.1 fl (80-96); MEAN PLT VOLUME 7.7 fl (7.5-11.1); MONO % 7.3 % (3.8-10.2); PLATELET COUNT 200 10^3/uL (134-434); RBC 5.38 M/mm3 (4.00-5.60); RDW 14.2 % (11.9-15.9); WHITE BLOOD COUNT 6.4 K/mm3 (4.0-10.0)
[2021-03-06 08:10] LABS: BLOOD UREA NITROGEN 21.7 mg/dL (7-18); CALCIUM 9.2 mg/dL (8.5-10.1)
[2021-03-06 08:14] LABS: CREATININE 1.7 mg/dL (0.55-1.3)
[2021-03-06] MEDS ORDERED: POLYETHYLENE GLYCOL (HEALTHYLAX) 3350 17 GM PACKET PO PRN (08:56)
[2021-03-06] MEDS ORDERED: DOCUSATE SODIUM 100 MG CAPSULE (FP) PO PRN (08:56)
[2021-03-06] MEDS ORDERED: LORazepam 2 MG/ML SDV VIAL ONE (11:04)
[2021-03-06] MEDS: LORazepam 2 MG/ML SDV VIAL IVPUSH PRN ×3 (11:12→23:16)
[2021-03-06] MEDS ORDERED: LOSARTAN POTASSIUM 50 MG TABLET ONE (11:44)
[2021-03-06] MEDS ORDERED: DONEPEZIL HCL 5 MG TABLET (FP) ONE (11:44)
[2021-03-06] MEDS ORDERED: HEPARIN NA (PORCINE) 5,000 UNITS/ML 1ML VIAL ONE (11:45)
[2021-03-06] MEDS: EZETIMIBE 10 MG TABLET (FP) PO SCH (11:51)
[2021-03-06] MEDS: HEPARIN NA (PORCINE) 5,000 UNITS/ML 1ML VIAL SQ SCH ×2 (11:52→18:02)
[2021-03-06] MEDS: LOSARTAN POTASSIUM 50 MG TABLET PO SCH (11:52)
[2021-03-06] MEDS: INSULIN SLIDING SCALE (NOVOLOG) 1 VIAL SQ SCH ×3 (11:53→21:53)
[2021-03-06] MEDS: DONEPEZIL HCL 5 MG TABLET (FP) PO SCH (11:53)
[2021-03-06] MEDS: REPAGLINIDE 1 MG TABLET PO SCH ×2 (16:39→18:12)
[2021-03-06] MEDS ORDERED: DEXTROSE 5%-WATER - 50 ML IVPB ONE (20:57)
[2021-03-06] MEDS ORDERED: cefTRIAXone SODIUM 1 GM VIAL ONE (20:57)
[2021-03-06] MEDS: CEFTRIAXONE 1 GM in DEXTROSE 5%-WATER - 50 ML IVPB SCH (21:41)
[2021-03-06] MEDS: ATORVASTATIN CA 40 MG TABLET (FP) PO SCH (21:41)
[2021-03-07] MEDS: HEPARIN NA (PORCINE) 5,000 UNITS/ML 1ML VIAL SQ SCH ×3 (03:29→17:27)
[2021-03-07] MEDS: INSULIN SLIDING SCALE (NOVOLOG) 1 VIAL SQ SCH ×4 (07:07→21:58)
[2021-03-07 07:24] LABS: BASO % 0.9 % (0-2.0); EOS % 2.4 % (0-4.5); HEMATOCRIT 46.4 % (35.4-49); HEMOGLOBIN 15.7 GM/dL (11.7-16.9); LYMPH % 20.9 % (8-40); MCH 30.1 pg (25.7-33.7); MCHC 33.8 g/dl (32.0-35.9); MEAN CELL VOLUME 89.3 fl (80-96); MONO % 11.5 % (3.8-10.2); NEUT % 64.3 % (42.8-82.8); PLATELET COUNT 215 10^3/uL (134-434); RDW 14.1 % (11.9-15.9); WHITE BLOOD COUNT 7.6 K/mm3 (4.0-10.0)
[2021-03-07 07:31] LABS: INR 1.12 (0.83-1.09); PROTHROMBIN TIME (PATIENT) 12.6 SEC (9.7-13.0)
[2021-03-07 07:34] LABS: ACTIVATED PTT 33.1 SECONDS (25.2-36.5)
[2021-03-07 07:54] LABS: BLOOD UREA NITROGEN 23.9 mg/dL (7-18)
[2021-03-07 07:57] LABS: BILIRUBIN,TOTAL 0.7 mg/dL (0.2-1); CREATININE 1.7 mg/dL (0.55-1.3); TOT PROT 7.8 g/dl (6.4-8.2)
[2021-03-07 07:58] LABS: ALBUMIN 3.4 g/dl (3.4-5.0)
[2021-03-07 08:01] LABS: CALCIUM 9.2 mg/dL (8.5-10.1)
[2021-03-07] MEDS ORDERED: PT OWN MED DRAWER 7, Y5N ONE ×2 (08:33→16:42)
[2021-03-07] MEDS: LOSARTAN POTASSIUM 50 MG TABLET PO SCH (09:45)
[2021-03-07] MEDS: REPAGLINIDE 1 MG TABLET PO SCH ×3 (09:45→16:44)
[2021-03-07] MEDS: TAMSULOSIN HCL 0.4 MG CAP PO SCH (09:47)
[2021-03-07] MEDS: DONEPEZIL HCL 5 MG TABLET (FP) PO SCH (09:47)
[2021-03-07] MEDS: EZETIMIBE 10 MG TABLET (FP) PO SCH (09:50)
[2021-03-07] MEDS: LORazepam 2 MG/ML SDV VIAL IVPUSH PRN ×2 (10:02→22:13)
[2021-03-07] MEDS ORDERED: cefTRIAXone SODIUM 1 GM VIAL ONE (21:42)
[2021-03-07] MEDS ORDERED: DEXTROSE 5%-WATER - 50 ML IVPB ONE (21:42)
[2021-03-07] MEDS: ATORVASTATIN CA 40 MG TABLET (FP) PO SCH (21:49)
[2021-03-07] MEDS: CEFTRIAXONE 1 GM in DEXTROSE 5%-WATER - 50 ML IVPB SCH (21:49)
[2021-03-08] MEDS: HEPARIN NA (PORCINE) 5,000 UNITS/ML 1ML VIAL SQ SCH ×3 (01:24→17:37)
[2021-03-08] MEDS: INSULIN SLIDING SCALE (NOVOLOG) 1 VIAL SQ SCH ×4 (06:45→22:00)
[2021-03-08] MEDS: TAMSULOSIN HCL 0.4 MG CAP PO SCH (08:03)
[2021-03-08] MEDS: REPAGLINIDE 1 MG TABLET PO SCH ×3 (08:05→17:37)
[2021-03-08] MEDS: LOSARTAN POTASSIUM 50 MG TABLET PO SCH (10:03)
[2021-03-08] MEDS: EZETIMIBE 10 MG TABLET (FP) PO SCH (10:03)
[2021-03-08] MEDS: DONEPEZIL HCL 5 MG TABLET (FP) PO SCH (10:04)
[2021-03-08] MEDS: LORazepam 2 MG/ML SDV VIAL IVPUSH PRN ×2 (15:15→21:20)
[2021-03-08] MEDS ORDERED: LORazepam 2 MG/ML SDV VIAL IVPUSH ONE (18:30)
[2021-03-08] MEDS ORDERED: cefTRIAXone SODIUM 1 GM VIAL ONE (19:44)
[2021-03-08] MEDS ORDERED: DEXTROSE 5%-WATER - 50 ML IVPB ONE (19:45)
[2021-03-08] MEDS: CEFTRIAXONE 1 GM in DEXTROSE 5%-WATER - 50 ML IVPB SCH (21:20)
[2021-03-08] MEDS: ATORVASTATIN CA 40 MG TABLET (FP) PO SCH (21:21)
[2021-03-08] MEDS ORDERED: QUEtiapine FUMARATE 25 MG TABLET PO ONE (22:07)
[2021-03-09] MEDS: INSULIN SLIDING SCALE (NOVOLOG) 1 VIAL SQ SCH ×4 (06:45→21:30)
[2021-03-09] MEDS: HEPARIN NA (PORCINE) 5,000 UNITS/ML 1ML VIAL SQ SCH ×3 (06:46→19:04)
[2021-03-09 08:08] LABS: BLOOD UREA NITROGEN 32.2 mg/dL (7-18); CALCIUM 9.1 mg/dL (8.5-10.1)
[2021-03-09 08:09] LABS: ALBUMIN 3.7 g/dl (3.4-5.0)
[2021-03-09 08:12] LABS: CREATININE 2.2 mg/dL (0.55-1.3)
[2021-03-09 08:13] LABS: BILIRUBIN,TOTAL 0.7 mg/dL (0.2-1)
[2021-03-09] MEDS ORDERED: PT OWN MED DRAWER 7, Y5N ONE (09:03)
[2021-03-09] MEDS: REPAGLINIDE 1 MG TABLET PO SCH ×3 (09:57→18:00)
[2021-03-09] MEDS: LOSARTAN POTASSIUM 50 MG TABLET PO SCH (09:57)
[2021-03-09] MEDS: DONEPEZIL HCL 5 MG TABLET (FP) PO SCH (09:58)
[2021-03-09] MEDS: EZETIMIBE 10 MG TABLET (FP) PO SCH (09:59)
[2021-03-09] MEDS: TAMSULOSIN HCL 0.4 MG CAP PO SCH (09:59)
[2021-03-09] MEDS: QUEtiapine FUMARATE 25 MG TABLET PO SCH ×3 (10:03→21:33)
[2021-03-09] MEDS ORDERED: LORazepam 2 MG/ML SDV VIAL IM ONE (16:45)
[2021-03-09] MEDS: CEFTRIAXONE 1 GM in DEXTROSE 5%-WATER - 50 ML IVPB SCH (21:31)
[2021-03-09] MEDS: ATORVASTATIN CA 40 MG TABLET (FP) PO SCH (21:32)
[2021-03-10] MEDS: HEPARIN NA (PORCINE) 5,000 UNITS/ML 1ML VIAL SQ SCH ×3 (01:28→17:15)
[2021-03-10] MEDS ORDERED: LORazepam 2 MG/ML SDV VIAL IM ONE (03:48)
[2021-03-10] MEDS: INSULIN SLIDING SCALE (NOVOLOG) 1 VIAL SQ SCH ×4 (06:19→21:36)
[2021-03-10] MEDS: DONEPEZIL HCL 5 MG TABLET (FP) PO SCH (09:07)
[2021-03-10] MEDS: QUEtiapine FUMARATE 25 MG TABLET PO SCH ×2 (09:07→21:25)
[2021-03-10] MEDS: EZETIMIBE 10 MG TABLET (FP) PO SCH (09:08)
[2021-03-10] MEDS: LOSARTAN POTASSIUM 50 MG TABLET PO SCH (09:08)
[2021-03-10] MEDS: TAMSULOSIN HCL 0.4 MG CAP PO SCH (09:08)
[2021-03-10] MEDS ORDERED: PT OWN MED DRAWER 7, Y5N ONE (09:11)
[2021-03-10] MEDS: REPAGLINIDE 1 MG TABLET PO SCH (09:15)
[2021-03-10 10:09] LABS: BLOOD UREA NITROGEN 34.8 mg/dL (7-18); CALCIUM 9.4 mg/dL (8.5-10.1); CREATININE 1.9 mg/dL (0.55-1.3)
[2021-03-10] MEDS ORDERED: DEXTROSE 5%-WATER - 50 ML IVPB ONE (20:58)
[2021-03-10] MEDS ORDERED: cefTRIAXone SODIUM 1 GM VIAL ONE (20:58)
[2021-03-10] MEDS: ATORVASTATIN CA 40 MG TABLET (FP) PO SCH (21:25)
[2021-03-10] MEDS: CEFTRIAXONE 1 GM in DEXTROSE 5%-WATER - 50 ML IVPB SCH (21:36)
[2021-03-11] MEDS ORDERED: LORazepam 2 MG/ML SDV VIAL IM ONE (01:00)
[2021-03-11] MEDS: HEPARIN NA (PORCINE) 5,000 UNITS/ML 1ML VIAL SQ SCH ×3 (02:31→17:27)
[2021-03-11] MEDS ORDERED: PT OWN MED DRAWER 7, Y5N ONE (02:39)
[2021-03-11] MEDS: INSULIN SLIDING SCALE (NOVOLOG) 1 VIAL SQ SCH ×4 (06:57→22:20)
[2021-03-11] MEDS: TAMSULOSIN HCL 0.4 MG CAP PO SCH (09:09)
[2021-03-11] MEDS: QUEtiapine FUMARATE 25 MG TABLET PO SCH ×3 (09:09→22:19)
[2021-03-11] MEDS: EZETIMIBE 10 MG TABLET (FP) PO SCH (09:10)
[2021-03-11] MEDS: LOSARTAN POTASSIUM 50 MG TABLET PO SCH (09:10)
[2021-03-11] MEDS: DONEPEZIL HCL 5 MG TABLET (FP) PO SCH (09:10)
[2021-03-11] MEDS ORDERED: cefTRIAXone SODIUM 1 GM VIAL ONE (21:06)
[2021-03-11] MEDS ORDERED: DEXTROSE 5%-WATER - 50 ML IVPB ONE (21:06)
[2021-03-11] MEDS ORDERED: LORazepam 2 MG/ML SDV VIAL IVPUSH ONE (21:44)
[2021-03-11] MEDS: ATORVASTATIN CA 40 MG TABLET (FP) PO SCH (22:19)
[2021-03-11] MEDS: CEFTRIAXONE 1 GM in DEXTROSE 5%-WATER - 50 ML IVPB SCH (22:22)
[2021-03-12] MEDS: HEPARIN NA (PORCINE) 5,000 UNITS/ML 1ML VIAL SQ SCH ×3 (01:42→21:42)
[2021-03-12] MEDS: INSULIN SLIDING SCALE (NOVOLOG) 1 VIAL SQ SCH ×4 (07:43→21:47)
[2021-03-12 08:53] LABS: BASO % 1.4 % (0-2.0); EOS % 2.4 % (0-4.5); HEMOGLOBIN 16.1 GM/dL (11.7-16.9); LYMPH % 18.8 % (8-40); MCH 29.9 pg (25.7-33.7); MCHC 33.5 g/dl (32.0-35.9); MEAN CELL VOLUME 89.3 fl (80-96); MEAN PLT VOLUME 7.9 fl (7.5-11.1); MONO % 8.6 % (3.8-10.2); NEUT % 68.8 % (42.8-82.8); PLATELET COUNT 212 10^3/uL (134-434); RBC 5.38 M/mm3 (4.00-5.60); RDW 13.8 % (11.9-15.9); WHITE BLOOD COUNT 8.2 K/mm3 (4.0-10.0)
[2021-03-12] MEDS: TAMSULOSIN HCL 0.4 MG CAP PO SCH (08:57)
[2021-03-12 09:17] LABS: ALBUMIN 3.5 g/dl (3.4-5.0); BLOOD UREA NITROGEN 36.1 mg/dL (7-18); CALCIUM 9.4 mg/dL (8.5-10.1)
[2021-03-12 09:20] LABS: CREATININE 1.8 mg/dL (0.55-1.3)
[2021-03-12 09:22] LABS: BILIRUBIN,TOTAL 0.8 mg/dL (0.2-1); TOT PROT 7.7 g/dl (6.4-8.2)
[2021-03-12] MEDS: LOSARTAN POTASSIUM 50 MG TABLET PO SCH (09:55)
[2021-03-12] MEDS: QUEtiapine FUMARATE 25 MG TABLET PO SCH ×2 (09:55→21:42)
[2021-03-12] MEDS: EZETIMIBE 10 MG TABLET (FP) PO SCH (09:56)
[2021-03-12] MEDS ORDERED: DOCUSATE SODIUM 100 MG CAPSULE (FP) PO PRN (15:10)
[2021-03-12] MEDS ORDERED: POLYETHYLENE GLYCOL (HEALTHYLAX) 3350 17 GM PACKET PO PRN (15:10)
[2021-03-12] MEDS ORDERED: MELATONIN 5 MG TABLETS PO ONE (18:47)
[2021-03-12] MEDS ORDERED: cefTRIAXone SODIUM 1 GM VIAL ONE (20:54)
[2021-03-12] MEDS ORDERED: DEXTROSE 5%-WATER - 50 ML IVPB ONE (20:55)
[2021-03-12] MEDS ORDERED: CEFTRIAXONE 1 GM in DEXTROSE 5%-WATER - 50 ML IVPB SCH (22:00)
[2021-03-12] MEDS ORDERED: ATORVASTATIN CA 40 MG TABLET (FP) PO SCH (22:00)
[2021-03-13] MEDS: HEPARIN NA (PORCINE) 5,000 UNITS/ML 1ML VIAL SQ SCH ×2 (06:08→14:15)
[2021-03-13] MEDS: INSULIN SLIDING SCALE (NOVOLOG) 1 VIAL SQ SCH ×3 (06:08→16:34)
[2021-03-13] MEDS ORDERED: TAMSULOSIN HCL 0.4 MG CAP PO SCH (08:30)
[2021-03-13] MEDS: QUEtiapine FUMARATE 25 MG TABLET PO SCH (09:20)
[2021-03-13] MEDS ORDERED: LOSARTAN POTASSIUM 50 MG TABLET PO SCH (10:00)
[2021-03-13] MEDS ORDERED: EZETIMIBE 10 MG TABLET (FP) PO SCH (10:00)
[2021-03-13 19:30] VITALS: BP 150/90; PULSE 82; TEMP 97.8
== END 2021-03-13 17:27 | DRG 689 ==
LOC: JER 19:41 → JERBED 20:54 → J4W 03-06 15:05 → OBSVTOIN 03-07 06:58 → J5S 03-12 15:09
PROVIDERS: ADMIT Internal Medicine; ATTEND Family Medicine
DX: N39.0 Urinary tract infection, site not specified (principal); G93.41 Metabolic encephalopathy; I24.8 Other forms of acute ischemic heart disease; I47.2 Ventricular tachycardia; B96.4 Proteus (mirabilis) (morganii) as the cause of diseases classified elsewhere; I25.10 Atherosclerotic heart disease of native coronary artery without angina pectoris; E78.5 Hyperlipidemia, unspecified; E11.65 Type 2 diabetes mellitus with hyperglycemia; R45.1 Restlessness and agitation; N28.1 Cyst of kidney, acquired; G30.9 Alzheimer's disease, unspecified; F02.80 Dementia in other diseases classified elsewhere, unspecified severity, without behavioral disturbance, psychotic disturbance, mood disturbance, and anxiety; I12.9 Hypertensive chronic kidney disease with stage 1 through stage 4 chronic kidney disease, or unspecified chronic kidney disease; E11.22 Type 2 diabetes mellitus with diabetic chronic kidney disease; N18.30 Chronic kidney disease, stage 3 unspecified; R53.81 Other malaise; R79.89 Other specified abnormal findings of blood chemistry; Z79.4 Long term (current) use of insulin
CPT/HCPCS: 36415; 70450-TC; 71045-TC-FY; 72125-TC; 80048; 80053; 81003; 82550; 82553; 82962; 83735; 84100; 84484; 85025; 85610; 85730; 87040; 87086; 87186; 93005; 93010; 93306-TC; 97116-GP; 97162-GP; 99285-25; C9803; G0378; J1644; U0003; U0005

== ENCOUNTER 2022-07-16 18:26 | Inpatient (IN) | payer OTHER ==
[2022-07-16] MEDS ORDERED: SODIUM CHLORIDE 1,000 ML IV SCH (19:00)
[2022-07-16 19:32] LABS: VENOUS BASE EXCESS 1.5 mmol/L (-2-2); VENOUS O2 SATURATION 23.5 % (70-80); VENOUS PCO2 56.1 mmHg (38-52); VENOUS PH 7.323 (7.310-7.410)
[2022-07-16 19:59] LABS: ALBUMIN 2.4 g/dl (3.4-5.0); CALCIUM 8.3 mg/dL (8.5-10.1)
[2022-07-16 20:00] LABS: BASO % 0.3 % (0-2.0); BLOOD UREA NITROGEN 55.3 mg/dL (7-18); EOS % 0.1 % (0-4.5); GLUCOSE,RANDOM 195 mg/dL (74-106); HEMATOCRIT 32.2 % (35.4-49); HEMOGLOBIN 10.7 GM/dL (11.7-16.9); MCHC 33.2 g/dl (32.0-35.9); MEAN CELL VOLUME 96.2 fl (80-96); MEAN PLT VOLUME 8.1 fl (7.5-11.1); MONO % 9.1 % (3.8-10.2); NEUT % 74.5 % (42.8-82.8); PLATELET COUNT 134 10^3/uL (134-434); RBC 3.34 M/mm3 (4.00-5.60); RDW 13.8 % (11.9-15.9); WHITE BLOOD COUNT 6.1 K/mm3 (4.0-10.0)
[2022-07-16 20:02] LABS: CHOLESTEROL 158 mg/dL (50-200); CO2 28 mmol/L (21-32); SGOT/AST 25 U/L (15-37)
[2022-07-16 20:03] LABS: CREATININE 1.8 mg/dL (0.55-1.3); SGPT/ALT 10 U/L (13-61); TRIGLYCERIDES 83 mg/dL (0-150)
[2022-07-16 20:04] LABS: BILIRUBIN,TOTAL 0.2 mg/dL (0.2-1); LDL CHOLESTEROL (ONLY SJRH) 109 mg/dL (5-100); TOT PROT 5.8 g/dl (6.4-8.2)
[2022-07-16 20:05] LABS: ALK PHOS 64 U/L (45-117); HDL CHOLESTEROL 33 mg/dL (40-60)
[2022-07-16 20:19] LABS: ACTIVATED PTT 24.6 SECONDS (25.2-36.5); INR 1.06 (0.83-1.09); PROTHROMBIN TIME (PATIENT) 12.3 SEC (9.7-13.0)
[2022-07-16 20:25] LABS: CHLORIDE 107 mmol/L (98-107); SODIUM 140 mmol/L (136-145)
[2022-07-16 20:34] LABS: URINE COLOR YELLOW
[2022-07-16 20:35] LABS: PH,URINE 5.5 (5.0-8.0); URINE APPEARANCE TURBID; URINE BILIRUBIN NEGATIVE (NEGATIVE); URINE GLUCOSE (UA) NEGATIVE (NEGATIVE); URINE KETONE NEGATIVE (NEGATIVE); URINE PROTEIN 300 (NEGATIVE)
[2022-07-16 20:36] LABS: URINE LEUK ESTERASE 4+ (NEGATIVE); URINE NITRITE NEGATIVE (NEGATIVE)
[2022-07-16 20:37] LABS: EPI CELLS 171 /uL (0-25.1); HYALINE CASTS 420 /uL (0-3.1); URINE BACTERIA 6301 /uL (0-1359); URINE RBC 536 /uL (0-23.9); URINE WBC 34201 /uL (0-25.8)
[2022-07-16 20:41] LABS: ANION GAP 5 MMOL/L (8-16)
[2022-07-16] MEDS ORDERED: CEFTRIAXONE 1,000 MG in DEXTROSE 5%-WATER - 50 ML IVPB ONE (20:59)
[2022-07-16] MEDS ORDERED: ATORVASTATIN CA 80 MG TABLET (FP) PO ONE (21:55)
[2022-07-16] MEDS ORDERED: CEFTRIAXONE 1 GM/50 ML BAG ONE (22:03)
[2022-07-16] MEDS ORDERED: HEPARIN NA (PORCINE) 5,000 UNITS/ML 1ML VIAL ONE (22:04)
[2022-07-16] MEDS: HEPARIN NA (PORCINE) 5,000 UNITS/ML 1ML VIAL SQ SCH (22:06)
[2022-07-17] MEDS ORDERED: DEXTROSE 50%-WATER - 25 GM/50 ML VIAL IVPUSH PRN (05:04)
[2022-07-17] MEDS ORDERED: DEXTROSE 5%-NORMAL SALINE 1,000 ML IV SCH (05:15)
[2022-07-17 07:40] LABS: HEMATOCRIT 27.7 % (35.4-49); HEMOGLOBIN 9.3 GM/dL (11.7-16.9); MCH 31.4 pg (25.7-33.7); MCHC 33.7 g/dl (32.0-35.9); MEAN CELL VOLUME 93.3 fl (80-96); MEAN PLT VOLUME 7.3 fl (7.5-11.1); PLATELET COUNT 114 10^3/uL (134-434); RBC 2.97 M/mm3 (4.00-5.60); RDW 13.9 % (11.9-15.9); WHITE BLOOD COUNT 4.9 K/mm3 (4.0-10.0)
[2022-07-17 08:12] LABS: ALBUMIN 2.2 g/dl (3.4-5.0); BLOOD UREA NITROGEN 54.8 mg/dL (7-18); CALCIUM 8.2 mg/dL (8.5-10.1)
[2022-07-17 08:18] LABS: CREATININE 1.4 mg/dL (0.55-1.3)
[2022-07-17 08:20] LABS: BILIRUBIN,TOTAL 0.8 mg/dL (0.2-1); TOT PROT 5.2 g/dl (6.4-8.2)
[2022-07-17] MEDS ORDERED: CEFTRIAXONE 1 GM in DEXTROSE 5%-WATER - 50 ML IVPB SCH (10:00)
[2022-07-17] MEDS ORDERED: CEFTRIAXONE 1,000 MG in DEXTROSE 5%-WATER - 50 ML IVPB SCH (10:00)
[2022-07-17] MEDS: HEPARIN NA (PORCINE) 5,000 UNITS/ML 1ML VIAL SQ SCH ×2 (10:53→22:21)
[2022-07-17] MEDS: CEFTRIAXONE 1 GM in DEXTROSE 5%-WATER - 50 ML IVPB SCH (10:56)
[2022-07-17] MEDS: ASPIRIN COATED 81 MG TABLET.EC PO SCH ×2 (10:58→13:50)
[2022-07-17] MEDS: DIVALPROEX SODIUM 125 MG SPRINKLE CAPS PO SCH ×2 (13:49→22:21)
[2022-07-17] MEDS ORDERED: PNEUMOC 20-VAL CONJ-DIP CRM/PF 0.5 ML SYRINGE IM ONE (14:00)
[2022-07-17] MEDS ORDERED: FLU VACC QS2022-23(6MOS UP)/PF 60 MCG/0.5 ML SYRINGE IM ONE (14:00)
[2022-07-17] MEDS ORDERED: DEXTROSE 5%-0.45% SALINE 995 ML with POTASSIUM CHLORIDE 10 MEQ IV SCH (16:30)
[2022-07-17] MEDS: D5-1/2NS+10 MEQ KCL - 10 MEQ/1,000 ML INFUS.BAG IV SCH (20:44)
[2022-07-17] MEDS: ATORVASTATIN CA 80 MG TABLET (FP) PO SCH (22:21)
[2022-07-18] MEDS: DIVALPROEX SODIUM 125 MG SPRINKLE CAPS PO SCH ×3 (06:26→21:18)
[2022-07-18 07:41] LABS: BASO % 0.8 % (0-2.0); EOS % 0.6 % (0-4.5); HEMATOCRIT 29.2 % (35.4-49); LYMPH % 23.6 % (8-40); MCH 32.6 pg (25.7-33.7); MCHC 34.2 g/dl (32.0-35.9); MEAN CELL VOLUME 95.3 fl (80-96); MONO % 9.1 % (3.8-10.2); NEUT % 65.9 % (42.8-82.8); PLATELET COUNT 127 10^3/uL (134-434); RBC 3.06 M/mm3 (4.00-5.60); RDW 13.7 % (11.9-15.9); WHITE BLOOD COUNT 4.4 K/mm3 (4.0-10.0)
[2022-07-18 08:02] LABS: ALBUMIN 2.3 g/dl (3.4-5.0); CALCIUM 8.6 mg/dL (8.5-10.1)
[2022-07-18 08:03] LABS: BLOOD UREA NITROGEN 43.3 mg/dL (7-18)
[2022-07-18 08:05] LABS: CREATININE 1.3 mg/dL (0.55-1.3)
[2022-07-18 08:07] LABS: BILIRUBIN,TOTAL 0.2 mg/dL (0.2-1); TOT PROT 5.5 g/dl (6.4-8.2)
[2022-07-18] MEDS: TAMSULOSIN HCL 0.4 MG CAP PO SCH (09:52)
[2022-07-18] MEDS: ASPIRIN COATED 81 MG TABLET.EC PO SCH (09:52)
[2022-07-18] MEDS: METOPROLOL TARTRATE 50 MG TABLET (FP) PO SCH (09:53)
[2022-07-18] MEDS: HEPARIN NA (PORCINE) 5,000 UNITS/ML 1ML VIAL SQ SCH ×2 (09:55→21:19)
[2022-07-18] MEDS: CITALOPRAM HYDROBROMIDE 20 MG TABLET PO SCH (09:55)
[2022-07-18] MEDS: CEFTRIAXONE 1 GM in DEXTROSE 5%-WATER - 50 ML IVPB SCH (09:56)
[2022-07-18] MEDS: D5-1/2NS+10 MEQ KCL - 10 MEQ/1,000 ML INFUS.BAG IV SCH ×2 (13:16→17:42)
[2022-07-18] MEDS: ATORVASTATIN CA 80 MG TABLET (FP) PO SCH (21:18)
[2022-07-19] MEDS: DIVALPROEX SODIUM 125 MG SPRINKLE CAPS PO SCH ×3 (06:24→21:52)
[2022-07-19 07:54] LABS: BASO % 0.9 % (0-2.0); EOS % 1.4 % (0-4.5); HEMATOCRIT 28.7 % (35.4-49); HEMOGLOBIN 9.6 GM/dL (11.7-16.9); LYMPH % 31.3 % (8-40); MCH 31.2 pg (25.7-33.7); MCHC 33.3 g/dl (32.0-35.9); MEAN CELL VOLUME 93.5 fl (80-96); MEAN PLT VOLUME 7.5 fl (7.5-11.1); MONO % 10.5 % (3.8-10.2); NEUT % 55.9 % (42.8-82.8); PLATELET COUNT 124 10^3/uL (134-434); RBC 3.07 M/mm3 (4.00-5.60); RDW 13.7 % (11.9-15.9); WHITE BLOOD COUNT 4.9 K/mm3 (4.0-10.0)
[2022-07-19] MEDS: HEPARIN NA (PORCINE) 5,000 UNITS/ML 1ML VIAL SQ SCH ×2 (09:22→21:53)
[2022-07-19] MEDS: ASPIRIN COATED 81 MG TABLET.EC PO SCH (09:23)
[2022-07-19] MEDS: METOPROLOL TARTRATE 50 MG TABLET (FP) PO SCH (09:23)
[2022-07-19] MEDS: CEFTRIAXONE 1 GM in DEXTROSE 5%-WATER - 50 ML IVPB SCH (09:23)
[2022-07-19] MEDS: CITALOPRAM HYDROBROMIDE 20 MG TABLET PO SCH (09:24)
[2022-07-19] MEDS: TAMSULOSIN HCL 0.4 MG CAP PO SCH (09:24)
[2022-07-19 09:52] LABS: ALBUMIN 2.2 g/dl (3.4-5.0); BLOOD UREA NITROGEN 37.2 mg/dL (7-18)
[2022-07-19 09:55] LABS: CREATININE 1.2 mg/dL (0.55-1.3)
[2022-07-19 09:57] LABS: BILIRUBIN,TOTAL 0.2 mg/dL (0.2-1); TOT PROT 5.5 g/dl (6.4-8.2)
[2022-07-19] MEDS: D5-1/2NS+10 MEQ KCL - 10 MEQ/1,000 ML INFUS.BAG IV SCH ×2 (16:51→21:47)
[2022-07-19] MEDS: ATORVASTATIN CA 80 MG TABLET (FP) PO SCH (21:53)
[2022-07-20 03:21] VITALS: RESP 18
[2022-07-20] MEDS: DIVALPROEX SODIUM 125 MG SPRINKLE CAPS PO SCH ×2 (06:19→13:43)
[2022-07-20] MEDS: CEFTRIAXONE 1 GM in DEXTROSE 5%-WATER - 50 ML IVPB SCH (09:55)
[2022-07-20] MEDS: ASPIRIN COATED 81 MG TABLET.EC PO SCH (09:56)
[2022-07-20] MEDS: METOPROLOL TARTRATE 50 MG TABLET (FP) PO SCH (09:56)
[2022-07-20] MEDS: HEPARIN NA (PORCINE) 5,000 UNITS/ML 1ML VIAL SQ SCH (09:57)
[2022-07-20] MEDS: CITALOPRAM HYDROBROMIDE 20 MG TABLET PO SCH (09:59)
[2022-07-20 15:22] VITALS: BP 124/62; PULSE 67; TEMP 97.2
== END 2022-07-20 15:29 | DRG 57 ==
LOC: JER 18:26 → JERBED 21:01 → J4S 07-17 00:46
PROVIDERS: ADMIT Internal Medicine; ATTEND Family Medicine
DX: I69.30 Unspecified sequelae of cerebral infarction (principal); N39.0 Urinary tract infection, site not specified; F03.90 Unspecified dementia, unspecified severity, without behavioral disturbance, psychotic disturbance, mood disturbance, and anxiety; E11.65 Type 2 diabetes mellitus with hyperglycemia; E78.5 Hyperlipidemia, unspecified; I25.10 Atherosclerotic heart disease of native coronary artery without angina pectoris; I12.9 Hypertensive chronic kidney disease with stage 1 through stage 4 chronic kidney disease, or unspecified chronic kidney disease; E11.22 Type 2 diabetes mellitus with diabetic chronic kidney disease; N18.9 Chronic kidney disease, unspecified; R29.810 Facial weakness; D64.9 Anemia, unspecified; R79.89 Other specified abnormal findings of blood chemistry; N40.0 Benign prostatic hyperplasia without lower urinary tract symptoms; N28.1 Cyst of kidney, acquired; F39 Unspecified mood [affective] disorder
CPT/HCPCS: 0241U-QW; 36415; 70450-TC; 70551-TC; 71045-TC-FY; 80053; 80061; 81003; 82272; 82550; 82553; 82728; 82803; 82962; 83036; 83540; 83550; 83605; 84484; 85025; 85027; 85610; 85730; 86850; 86900; 86901; 87040; 87086; 90677; 93005; 93010; 97161-GP; 99285-25; G0008; J1644; Q2036

== ENCOUNTER 2023-09-27 16:55 | Inpatient (IN) | payer OTHER ==
[2023-09-27] MEDS ORDERED: PIPERACILLIN/TAZOB 4.5 GM 4.5 GM/100 ML BAG IVPB ONE (18:33)
[2023-09-27 18:38] LABS: VENOUS BASE EXCESS 0.1 mmol/L (-2-2); VENOUS O2 SATURATION 68.4 % (70-80); VENOUS PCO2 40.1 mmHg (38-52); VENOUS PH 7.408 (7.310-7.410)
[2023-09-27 18:40] LABS: BASO % 0.6 % (0-2.0); EOS % 0.2 % (0-4.5); HEMATOCRIT 31.4 % (35.4-49); HEMOGLOBIN 10.8 GM/dL (11.7-16.9); LYMPH % 7.1 % (8-40); MCH 29.9 pg (25.7-33.7); MCHC 34.4 g/dl (32.0-35.9); MEAN CELL VOLUME 86.7 fl (80-96); MEAN PLT VOLUME 8.1 fl (7.5-11.1); MONO % 6.4 % (3.8-10.2); NEUT % 85.7 % (42.8-82.8); PLATELET COUNT 208 10^3/uL (134-434); RBC 3.62 M/mm3 (4.00-5.60); WHITE BLOOD COUNT 5.3 K/mm3 (4.0-10.0)
[2023-09-27] MEDS: PIPERACILLIN/TAZOB 4.5 GM 4.5 GM in DEXTROSE 5%-WATER 100 ML IVPB ONE (18:40)
[2023-09-27] MEDS: SODIUM CHLORIDE 0.9% 500 ML INFUS.BAG IV ONE ×2 (18:41→23:47)
[2023-09-27 18:48] LABS: INR 1.18 (0.83-1.09); PROTHROMBIN TIME (PATIENT) 13.3 SEC (9.7-13.0)
[2023-09-27 18:51] LABS: ACTIVATED PTT 28.8 SECONDS (25.2-36.5)
[2023-09-27 18:58] LABS: ALBUMIN 2.3 g/dl (3.4-5.0); CALCIUM 8.6 mg/dL (8.5-10.1)
[2023-09-27 19:01] LABS: CREATININE 1.6 mg/dL (0.55-1.3)
[2023-09-27 19:03] LABS: BILIRUBIN,TOTAL 0.7 mg/dL (0.2-1); TOT PROT 6.3 g/dl (6.4-8.2)
[2023-09-27] MEDS ORDERED: VANCOMYCIN 1 GRAM (PRE-DOCKED) 1,000 MG/250 ML BAG IVPB ONE (19:30)
[2023-09-27] MEDS: VANCOMYCIN 1,000 MG in DEXTROSE 5%-WATER - 250 ML IVPB ONE (19:40)
[2023-09-27 19:45] LABS: URINE APPEARANCE Cloudy; URINE BILIRUBIN Negative (NEGATIVE); URINE COLOR Dark yellow; URINE GLUCOSE (UA) Negative (NEGATIVE); URINE KETONE Trace (NEGATIVE); URINE LEUK ESTERASE 1+ (NEGATIVE); URINE NITRITE Positive (NEGATIVE); URINE PROTEIN 2+ (NEGATIVE)
[2023-09-27] MEDS ORDERED: ACETAMINOPHEN INJECTION 100 ML IVPB ONE (19:48)
[2023-09-27] MEDS: ACETAMINOPHEN 1000 MG/100 ML BAG IVPB ONE (19:52)
[2023-09-28] MEDS: SODIUM CHLORIDE 1,000 ML IV SCH (03:13)
[2023-09-28] MEDS: PIPERACILLIN/TAZOB 4.5 GM 4.5 GM in DEXTROSE 5%-WATER 100 ML IVPB SCH (04:09)
[2023-09-28] MEDS: DIVALPROEX SODIUM 125 MG SPRINKLE CAPS PO SCH (05:33)
[2023-09-28] MEDS: HEPARIN NA (PORCINE) 5,000 UNITS/ML 1ML VIAL SQ SCH (05:34)
[2023-09-28] MEDS: ATORVASTATIN CA 80 MG TABLET (FP) PO SCH (05:34)
[2023-09-28] MEDS: ASPIRIN 81 MG CHEWABLE TABLETS PO ONE (05:35)
[2023-09-28] MEDS: ASPIRIN COATED 81 MG TABLET.EC PO SCH (09:02)
[2023-09-28] MEDS: METOPROLOL TARTRATE 25 MG TABLET (FP) PO SCH (09:02)
[2023-09-28] MEDS: busPIRone HCL 5 MG TABLET PO SCH (09:02)
[2023-09-28] MEDS: CITALOPRAM HYDROBROMIDE 10 MG TABLET PO SCH (09:03)
[2023-09-28 09:18] LABS: BASO % 0.8 % (0-2.0); EOS % 1.5 % (0-4.5); HEMATOCRIT 28.5 % (35.4-49); HEMOGLOBIN 9.5 GM/dL (11.7-16.9); LYMPH % 12.9 % (8-40); MCH 29.2 pg (25.7-33.7); MCHC 33.2 g/dl (32.0-35.9); MEAN CELL VOLUME 87.8 fl (80-96); MEAN PLT VOLUME 8.1 fl (7.5-11.1); MONO % 7.2 % (3.8-10.2); NEUT % 77.6 % (42.8-82.8); PLATELET COUNT 188 10^3/uL (134-434); RBC 3.25 M/mm3 (4.00-5.60)
[2023-09-28 09:28] LABS: POTASSIUM 3.7 mmol/L (3.5-5.1)
[2023-09-28 09:33] LABS: ALBUMIN 1.9 g/dl (3.4-5.0); BLOOD UREA NITROGEN 27.1 mg/dL (7-18)
[2023-09-28 09:34] LABS: MAGNESIUM 1.8 mg/dL (1.8-2.4)
[2023-09-28 09:35] LABS: CALCIUM 7.6 mg/dL (8.5-10.1)
[2023-09-28 09:36] LABS: CREATININE 1.4 mg/dL (0.55-1.3); PHOSPHOROUS 3.2 mg/dL (2.5-4.9)
[2023-09-28 09:38] LABS: BILIRUBIN,TOTAL 0.8 mg/dL (0.2-1); TOT PROT 5.4 g/dl (6.4-8.2)
[2023-09-28 13:51] VITALS: BMI 19.1
[2023-09-28] MEDS ORDERED: ATORVASTATIN CA 80 MG TABLET (FP) PO SCH (22:00)
[2023-09-29] MEDS ORDERED: PIPERACILLIN/TAZOBACTAM 4.5 GM VIAL IVPB ONE (02:06)
[2023-09-29] MEDS: VANCOMYCIN/WATER FOR INJ (PEG) 1,000 MG/200 ML BAG IVPB SCH (02:11)
[2023-09-29 08:07] LABS: BASO % 0.5 % (0-2.0); HEMATOCRIT 30.1 % (35.4-49); LYMPH % 14.8 % (8-40); MCHC 33.3 g/dl (32.0-35.9); MEAN CELL VOLUME 87.1 fl (80-96); MEAN PLT VOLUME 7.7 fl (7.5-11.1); MONO % 6.6 % (3.8-10.2); NEUT % 76.1 % (42.8-82.8); PLATELET COUNT 212 10^3/uL (134-434); RBC 3.45 M/mm3 (4.00-5.60); RDW 14.9 % (11.9-15.9); WHITE BLOOD COUNT 6.4 K/mm3 (4.0-10.0)
[2023-09-29 08:18] LABS: POTASSIUM 3.6 mmol/L (3.5-5.1)
[2023-09-29 08:22] LABS: BLOOD UREA NITROGEN 22.5 mg/dL (7-18)
[2023-09-29 08:25] LABS: CREATININE 1.4 mg/dL (0.55-1.3)
[2023-09-29 08:27] LABS: BILIRUBIN,TOTAL 0.9 mg/dL (0.2-1); TOT PROT 5.8 g/dl (6.4-8.2)
[2023-09-29 08:31] LABS: IRON SERUM 26 ug/dL (50-175); TOTAL IRON BINDING CAPACITY 129 ug/dL (250-450)
[2023-09-29] MEDS: LOSARTAN POTASSIUM 50 MG TABLET PO SCH (10:45)
[2023-09-29] MEDS ORDERED: METOPROLOL TARTRATE 5 MG/5 ML VIAL IVPUSH PRN (17:32)
[2023-09-29] MEDS: PIPERACILLIN/TAZOB 3.375 GM 3.375 GM in DEXTROSE 5%-WATER - 50 ML IVPB SCH (17:47)
[2023-09-29] MEDS: POTASSIUM CHLORIDE 10 MEQ in SODIUM CHLORIDE 0.45% 1,000 ML IVPB SCH (19:45)
[2023-09-29] MEDS: METOPROLOL TARTRATE 5 MG/5 ML VIAL IVPB PRN (22:00)
[2023-09-30] MEDS: LABETALOL HCL 5 MG/1 ML (100MG/20 ML VIAL) IVPUSH ONE (00:14)
[2023-09-30] MEDS: LABETALOL HCL 20 MG/4 ML VIAL IVPUSH ONE (00:23)
[2023-09-30] MEDS ORDERED: LABETALOL HCL 5 MG/1 ML (100MG/20 ML VIAL) IVPUSH PRN (00:55)
[2023-09-30] MEDS: VANCOMYCIN 1,000 MG in DEXTROSE 5%-WATER - 250 ML IVPB SCH (08:47)
[2023-09-30] MEDS: PIPERACILLIN/TAZOB 4.5 GM 4.5 GM in DEXTROSE 5%-WATER 100 ML IVPB SCH (08:47)
[2023-09-30 10:13] LABS: ALBUMIN 2.1 g/dl (3.4-5.0); BLOOD UREA NITROGEN 17.7 mg/dL (7-18); CALCIUM 8.3 mg/dL (8.5-10.1)
[2023-09-30 10:17] LABS: CREATININE 1.1 mg/dL (0.55-1.3)
[2023-09-30 10:18] LABS: BILIRUBIN,TOTAL 0.7 mg/dL (0.2-1); TOT PROT 6.3 g/dl (6.4-8.2)
[2023-10-01] MEDS: AMINO ACIDS 4.25%/D5W 1,000 ML IV SCH (14:26)
[2023-10-01] MEDS: CEFTRIAXONE 1 GM in DEXTROSE 5%-WATER - 50 ML IVPB SCH (19:27)
[2023-10-03 10:12] LABS: BASO % 1.1 % (0-2.0); EOS % 1.2 % (0-4.5); HEMATOCRIT 37.1 % (35.4-49); HEMOGLOBIN 12.8 GM/dL (11.7-16.9); LYMPH % 26.5 % (8-40); MCH 29.9 pg (25.7-33.7); MCHC 34.6 g/dl (32.0-35.9); MEAN CELL VOLUME 86.5 fl (80-96); MEAN PLT VOLUME 7.8 fl (7.5-11.1); NEUT % 65.2 % (42.8-82.8); PLATELET COUNT 377 10^3/uL (134-434); RBC 4.29 M/mm3 (4.00-5.60); RDW 15.4 % (11.9-15.9); WHITE BLOOD COUNT 4.9 K/mm3 (4.0-10.0)
[2023-10-03 10:29] LABS: CALCIUM 8.9 mg/dL (8.5-10.1)
[2023-10-03 10:30] LABS: BLOOD UREA NITROGEN 15.6 mg/dL (7-18)
[2023-10-03 10:33] LABS: CREATININE 1.1 mg/dL (0.55-1.3)
[2023-10-03 10:34] LABS: BILIRUBIN,TOTAL 0.5 mg/dL (0.2-1); TOT PROT 7.5 g/dl (6.4-8.2)
[2023-10-03 10:41] LABS: ALBUMIN 2.6 g/dl (3.4-5.0)
[2023-10-04 07:53] LABS: EOS % 2.1 % (0-4.5); HEMATOCRIT 33.6 % (35.4-49); HEMOGLOBIN 11.5 GM/dL (11.7-16.9); LYMPH % 27.7 % (8-40); MCH 29.8 pg (25.7-33.7); MCHC 34.4 g/dl (32.0-35.9); MEAN CELL VOLUME 86.8 fl (80-96); MEAN PLT VOLUME 7.4 fl (7.5-11.1); MONO % 8.8 % (3.8-10.2); NEUT % 60.4 % (42.8-82.8); PLATELET COUNT 346 10^3/uL (134-434); RBC 3.87 M/mm3 (4.00-5.60); RDW 15.5 % (11.9-15.9); WHITE BLOOD COUNT 5.1 K/mm3 (4.0-10.0)
[2023-10-04 08:14] LABS: CALCIUM 8.6 mg/dL (8.5-10.1)
[2023-10-04 08:15] LABS: ALBUMIN 2.2 g/dl (3.4-5.0); BLOOD UREA NITROGEN 14.8 mg/dL (7-18)
[2023-10-04 08:20] LABS: BILIRUBIN,TOTAL 0.5 mg/dL (0.2-1); TOT PROT 6.2 g/dl (6.4-8.2)
[2023-10-04] MEDS: KCL 10 MEQ IVPB 10 MEQ/100 ML INFUS.BAG IVPB SCH (15:49)
[2023-10-04] MEDS: POTASSIUM CHLORIDE ORAL LIQUID 20 MEQ/15 ML PO ONE (15:49)
[2023-10-04] MEDS: APIXABAN 5 MG TABLET PO SCH (21:21)
[2023-10-04 22:03] VITALS: RESP 18
[2023-10-06 18:46] VITALS: BP 150/96; PULSE 97; TEMP 96.8
== END 2023-10-06 19:26 | DRG 871 ==
LOC: JER 16:55 → JERBED 09-28 00:22 → J5S 09-28 01:48
PROVIDERS: ADMIT Internal Medicine; ATTEND Family Medicine
DX: A41.89 Other specified sepsis (principal); G93.41 Metabolic encephalopathy; J18.9 Pneumonia, unspecified organism; E44.0 Moderate protein-calorie malnutrition; Z68.1 Body mass index [BMI] 19.9 or less, adult; I24.9 Acute ischemic heart disease, unspecified; N39.0 Urinary tract infection, site not specified; N17.9 Acute kidney failure, unspecified; I82.621 Acute embolism and thrombosis of deep veins of right upper extremity; R62.7 Adult failure to thrive; I25.10 Atherosclerotic heart disease of native coronary artery without angina pectoris; N40.0 Benign prostatic hyperplasia without lower urinary tract symptoms; E78.5 Hyperlipidemia, unspecified; I12.9 Hypertensive chronic kidney disease with stage 1 through stage 4 chronic kidney disease, or unspecified chronic kidney disease; N18.30 Chronic kidney disease, stage 3 unspecified; E11.22 Type 2 diabetes mellitus with diabetic chronic kidney disease; I69.391 Dysphagia following cerebral infarction; N28.1 Cyst of kidney, acquired; B96.29 Other Escherichia coli [E. coli] as the cause of diseases classified elsewhere; B95.4 Other streptococcus as the cause of diseases classified elsewhere; F03.90 Unspecified dementia, unspecified severity, without behavioral disturbance, psychotic disturbance, mood disturbance, and anxiety; I45.10 Unspecified right bundle-branch block; R79.89 Other specified abnormal findings of blood chemistry; D50.9 Iron deficiency anemia, unspecified; Z86.73 Personal history of transient ischemic attack (TIA), and cerebral infarction without residual deficits
CPT/HCPCS: 0241U-QW; 36415; 70450-TC; 71045-TC-FY; 71250-TC; 80053; 81003; 82728; 82803; 82962; 83540; 83550; 83605; 83735; 84100; 84466; 84484; 85025; 85045; 85610; 85730; 86850; 86900; 86901; 87040; 87070; 87086; 87186; 87205; 87899; 93005; 93010; 93971; 99285-25; J0131; J1644